=== PATIENT | female | born 1975 | race Caucasian/White ===

== ENCOUNTER 2016-06-27 17:41 | Emergency (ER) | payer MEDICAID, OTHER ==
[~2016-06-27] VITALS: Ht 162.6 cm; Wt 99.8 kg
[~2016-06-27 17:41] MED LIST: FLOMAX0.4 MG PO; NORCO 5/325 MG1 TAB PO
[2016-06-27 17:51] VITALS: BP 131/83
[2016-06-27] MEDS ORDERED: NACL 0.9% 1,000 ML IV SCH (18:02)
[2016-06-27] MEDS ORDERED: ONDANSETRON 4 MG/2 ML VIAL IVP ONE ×2 (18:05→19:30)
[2016-06-27] MEDS ORDERED: KETOROLAC 30 MG/ML VIAL IVP ONE (18:05)
--- NOTE | 2016-06-27 18:07 | NUR ---
LAB AT BED SIDE
--- NOTE | 2016-06-27 18:07 | NUR ---
41/F BIB SELF C/O LOWER BACK PAIN, HEADACHE & N/V/D X TODAY. SKIN IS PINK/WARM/DRY; AAOX4 WITH EVEN AND STEADY GAIT; LUNGS CLEAR BL; PT DENIES CP, SOB, OR COUGH AT THIS TIME; PATIENT STATES PAIN OF 6/10 AT THIS TIME; PATIENT POSITIONED FOR COMFORT; HOB ELEVATED; BEDRAILS UP X2; BED DOWN. ER MD MADE AWARE OF PT STATUS.
--- NOTE | 2016-06-27 18:07 | NUR ---
PT TAKEN TO BED 5
--- NOTE | 2016-06-27 19:17 | NUR ---
Dr. Yeh evaluating patient at bedside.
--- NOTE | 2016-06-27 19:21 | NUR ---
Pt report given to KING Barrera. Transfer of care at this time.
--- NOTE | 2016-06-27 19:22 | NUR ---
REPORT RECEIVED FROM LUCERO MALIK. ASSUMED PT CARE.
[2016-06-27] MEDS ORDERED: IBUPROFEN 800 MG TAB PO ONE (20:55)
[2016-06-27 21:45] VITALS: BP 106/70
== END 2016-06-27 21:45 | disposition home or self-care (01) ==
LOC: MED 17:41
DX: A08.4 Viral intestinal infection, unspecified (principal); Z87.442 Personal history of urinary calculi; Z79.899 Other long term (current) drug therapy; Z98.890 Other specified postprocedural states
CPT/HCPCS: 36415; 74177; 80053; 81001; 81025; 83690; 85025; 96361; 96374; 96375; 96376; 99285; J1885; J2405; J7030; Q9967

== ENCOUNTER 2016-09-30 13:42 | Emergency (ER) | payer MEDICAID ==
[~2016-09-30] VITALS: Ht 165.1 cm; Wt 104.1 kg
[2016-09-30 13:45] VITALS: BP 126/85
--- NOTE | 2016-09-30 16:13 | NUR ---
PATIENT TO BED 8 AT THIS TIME.
--- NOTE | 2016-09-30 16:20 | NUR ---
41/F PRESENT TO ER C/O RIGHT LOWER MOLAR PAIN X 3 DAYS----SAW DENTIST YESTERDAY AND WAS TOLD TO CONTINUE AMOXICILLIN BUT PAIN HAS WORSEN. PAIN 6/10 THROBBING NON-RADIATING. AAOx4, PERRLA, BREATHING EVEN AND UNLABORED. ERMD NOTIFIED OF PATIENT STATUS.
--- NOTE | 2016-09-30 16:43 | NUR ---
Patient being evaluated by physician at bedside.
[2016-09-30] MEDS ORDERED: HYDROcodone/APAP 5/325 MG 1 TAB TAB PO ONE (16:45)
[2016-09-30 17:01] VITALS: BP 117/76
--- NOTE | 2016-09-30 17:01 | NUR ---
Patient discharged with v/s stable. Written and verbal after care instructions given and explained. Patient alert, oriented and verbalized understanding of instructions. Ambulatory with steady gait. All questions addressed prior to discharge. ID band removed. Patient advised to follow up with PMD. Rx of NORCO5/325MG TABLET given. Patient educated on indication of medication including possible reaction and side effects. Opportunity to ask questions provided and answered.
== END 2016-09-30 17:01 | disposition home or self-care (01) ==
LOC: MED 13:42
DX: K02.9 Dental caries, unspecified (principal); Z87.442 Personal history of urinary calculi

== ENCOUNTER 2016-11-12 21:38 | Emergency (ER) | payer MEDICAID ==
[~2016-11-12] VITALS: Ht 162.6 cm; Wt 104.3 kg
[~2016-11-12 21:38] MED LIST changes: -FLOMAX0.4 MG PO; +HYDR-4446 PO; -NORCO 5/325 MG1 TAB PO; +TAMS0.4C96 PO
[2016-11-12 22:12] VITALS: BP 141/95
--- NOTE | 2016-11-12 22:24 | NUR ---
TO ER BED 8
--- NOTE | 2016-11-12 22:25 | NUR ---
PATIENT PRESENTS TO ED WITH C/O LEFT FLANK PAIN 2 HOURS AGO ,RADIATING TO HER LOWER BACK PAIN WITH NAUSEA . DENIES V/D; SKIN IS PINK/WARM/DRY; AAOX4 WITH EVEN AND STEADY GAIT; LUNGS CLEAR BL; HR EVEN AND REGULAR; PT DENIES ANY FEVER, CP, SOB, OR COUGH AT THIS TIME; PATIENT STATES LEFT FLANK PAIN OF 10/10 AT THIS TIME; VSS; PATIENT POSITIONED FOR COMFORT; HOB ELEVATED; BEDRAILS UP X2; BED DOWN. ER MD MADE AWARE OF PT STATUS.
--- NOTE | 2016-11-12 22:53 | NUR ---
REPORT GIVEN TO KING GOOD FOR CONTINUATION OF CARE
[2016-11-12] MEDS ORDERED: NACL 0.9% 1,000 ML IV ONE (22:55)
[2016-11-12] MEDS ORDERED: HYDROmorphone 1 MG/ML AMP IVP ONE (23:00)
[2016-11-13] MEDS ORDERED: HYDROmorphone 1 MG/ML AMP IVP ONE (00:15)
--- NOTE | 2016-11-13 00:50 | NUR ---
RESULTS BACK AND NOTED BY ERMD AND FOR D/C.
[2016-11-13 01:07] VITALS: BP 132/83
== END 2016-11-13 01:07 | disposition home or self-care (01) ==
LOC: MED 21:38
DX: N20.0 Calculus of kidney (principal); R03.0 Elevated blood-pressure reading, without diagnosis of hypertension; Z87.442 Personal history of urinary calculi
CPT/HCPCS: 74176; 81002; 81025; 96361; 96374; 96376; 99285; J1170; J7030

== ENCOUNTER 2017-01-29 14:52 | Emergency (ER) | payer MEDICAID ==
[~2017-01-29] VITALS: Ht 162.6 cm; Wt 103.2 kg
[~2017-01-29 14:52] MED LIST changes: +ACET-8386 PO; -HYDR-4446 PO
[2017-01-29 14:58] VITALS: BP 148/65
--- NOTE | 2017-01-29 15:03 | NUR ---
Patient ambulated to bed 8. RN evaluating patient at bedside.
--- NOTE | 2017-01-29 15:04 | NUR ---
41F DROPPED OFF BY FAMILY C/O ASTHMA EXACERBATION X 2 WEEKS, WORSENING X TODAY. HX: ASTHMA, ENDOMETRIAL CYST. RX: INHALER. SKIN IS PINK/WARM/DRY; AAOX4 WITH EVEN AND STEADY GAIT; LUNGS WHEEZING BL; PT DENIES ANY FEVER, OR COUGH AT THIS TIME; PATIENT STATES PAIN OF 5/10 AT THIS TIME; VSS; PATIENT POSITIONED FOR COMFORT; HOB ELEVATED; BEDRAILS UP X2; BED DOWN. ER MD MADE AWARE OF PT STATUS.
--- NOTE | 2017-01-29 15:08 | NUR ---
Dr. Ferguson evaluating patient at bedside.
--- NOTE | 2017-01-29 15:09 | NUR ---
David lock in [facility] - 01/29/[address] at [address] Ferguson evaluating patient at bedside.
[2017-01-29] MEDS ORDERED: predniSONE 20 MG TAB PO ONE (15:15)
[2017-01-29] MEDS ORDERED: ALBUTEROL SULFATE/IPRATROPIU 3 ML SOL IH ONE (15:15)
--- NOTE | 2017-01-29 15:15 | NUR ---
ADMITTING DX: ADULT-ASTHMA LOC AWAKE AND ALERT RESPONSIVE TO TOOL REPAIR TECHNICIAN VERBAL COMMANDS EDUCATION PROVIDE TO PATIENT WITH ACKNOWLEDGEMENT ON HHN THERAPY, RESPIRATORY DRUG AND PEAK FLOW. HHN THERAPY GIVEN ORDERED ENCOURAGED PATIENT FOR DEEP BREATHING AND COUGH DURING THERAPY STRONG MOIST NPC TOLERATED THERAPY WELL WITHOUT ADVERSE REACTIONS NOTED PEAK FLOW: BEFORE 200ml AFTER [address]ml DR[address] IMANI HADDAD NOTIFIED
--- NOTE | 2017-01-29 15:19 | NUR ---
RT AT BEDSIDE FOR BREATHING TREATMENT.
[2017-01-29] MEDS ORDERED: ALBUTEROL 0.083% 2.5 MG/3 ML NEBU INH ONE (16:05)
--- NOTE | 2017-01-29 16:12 | NUR ---
AWAKE AND ALERT RESPONSIVE FOLLOW-UP HHN THERAPY GIVEN ORDERED ENCOURAGED DEEP BREATHING AND COUGH DURING THERAPY TOLRATED WELL WITHOUT INCIDENT PEAK FLOW: before 320ml after 360ml
--- NOTE | 2017-01-29 16:24 | NUR ---
RT AT BEDSIDE FOR BREATHING TREATMENT.
[2017-01-29 16:46] VITALS: BP 147/84
--- NOTE | 2017-01-29 16:46 | NUR ---
Patient discharged with P112 & BP 147/84; DENIES HEADACHE OR DIZINESS; MD MADE AWARE. Written and verbal after care instructions given and explained. Patient alert, oriented and verbalized understanding of instructions. Ambulatory with steady gait. All questions addressed prior to discharge. ID band removed. Patient advised to follow up with PMD. Rx of QVAR INHALOR& MEDROL DOSEPAK given. Patient educated on indication of medication including possible reaction and side effects. Opportunity to ask questions provided and answered.
== END 2017-01-29 16:46 | disposition home or self-care (01) ==
LOC: MED 14:52
DX: J45.901 Unspecified asthma with (acute) exacerbation (principal); R03.0 Elevated blood-pressure reading, without diagnosis of hypertension
CPT/HCPCS: 94640; 99284; J7512; J7613; J7620

== ENCOUNTER 2017-02-28 18:48 | Emergency (ER) | payer MEDICAID ==
[~2017-02-28] VITALS: Ht 162.6 cm; Wt 105.7 kg
[2017-02-28 19:03] VITALS: BP 132/85
[2017-02-28] MEDS ORDERED: PROCHLORPERAZINE 10 MG/2 ML VIAL IM ONE (20:10)
[2017-02-28] MEDS ORDERED: diphenhydrAMINE 50 MG/ML VIAL IM ONE (20:10)
[2017-02-28 21:08] VITALS: BP 110/72
== END 2017-02-28 21:08 | disposition home or self-care (01) ==
LOC: MED 18:48
DX: R51 Headache (principal); R03.0 Elevated blood-pressure reading, without diagnosis of hypertension; R20.0 Anesthesia of skin; R11.2 Nausea with vomiting, unspecified; J45.909 Unspecified asthma, uncomplicated; Z87.442 Personal history of urinary calculi; Z79.899 Other long term (current) drug therapy
CPT/HCPCS: 70450; 81002; 81025; 96372; 99284; J0780; J1200

== ENCOUNTER 2018-06-17 08:44 | Inpatient (IN) | payer MEDICAID ==
[~2018-06-17] VITALS: Ht 162.6 cm; Wt 112.9 kg
[2018-06-17 08:57] VITALS: BP 158/92
--- NOTE | 2018-06-17 09:42 | NUR ---
ASSUMED PATIENT CARE, NURSING ASSESSMENT COMPLETED. SEEN AND EVALUATED BY REMA CLAY COMPLETED.
[2018-06-17] MEDS ORDERED: KETOROLAC 60 MG/2 ML VIAL IM ONE (09:50)
[2018-06-17] MEDS ORDERED: MORPHINE SULFATE 4 MG/ML SYR IM ONE (09:50)
[2018-06-17] MEDS ORDERED: DICYCLOMINE 20 MG/2 ML VIAL IM ONE (09:50)
--- NOTE | 2018-06-17 10:07 | NUR ---
Patient taken to CT via w/c.
[2018-06-17 10:19] LABS: APPEARANCE,URINE CLEAR (CLEAR); BILIRUBIN,URINE NEGATIVE (NEGATIVE); BLOOD, URINE 3+ (NEGATIVE); COLOR,URINE YELLOW (YELLOW); LEUKOCYTE ESTERASE ,URINE NEGATIVE (NEGATIVE); NITRITE, URINE NEGATIVE (NEGATIVE); PH,URINE 5.5 (5.0-9.0); UGLUCOSE NEGATIVE (NEGATIVE)
[2018-06-17 10:28] LABS: RBC,URINE 50-80 /HPF (0-5)
[2018-06-17 10:29] LABS: WBC,URINE 6-15 (FEW) /HPF (0-5)
[2018-06-17] MEDS ORDERED: NACL 0.9% 2,000 ML IV SCH (11:20)
[2018-06-17] MEDS ORDERED: GENTAMICIN 80 MG in DEXTROSE 5% 100 ML IV ONE (11:20)
[2018-06-17] MEDS ORDERED: NACL 0.9% 1,000 ML IV ONE (11:20)
[2018-06-17] MEDS ORDERED: LEVOFLOXACIN 500 MG/D5W PREMIX 100 ML IV ONE (11:20)
[2018-06-17] MEDS ORDERED: METOCLOPRAMIDE 10 MG/2 ML INJ VIAL IVP ONE (11:50)
[2018-06-17] MEDS ORDERED: PROMETHAZINE 25 MG/ML VIAL IM ONE (11:50)
[2018-06-17] MEDS ORDERED: GENTAMICIN 80 MG/2 ML VIAL ONE (12:06)
[2018-06-17 13:18] LABS: BASOPHILS # (AUTO) 0.1 K/uL (0.00-0.22); BASOPHILS % (AUTO) 0.6 % (0.0-2.0); EOSINOPHILS # (AUTO) 0.3 K/uL (0-0.4); EOSINOPHILS % (AUTO) 2.1 % (0.0-4.0); HEMATOCRIT 43.4 % (36-48); LYMPHOCYTES # (AUTO) 2.8 K/uL (2.5-16.5); LYMPHOCYTES % (AUTO) 20.8 % (20.5-51.1); MEAN CORPUSCULAR HEMOGLOBIN 29 pg (27-31); MEAN CORPUSCULAR HGB CONC 32 g/dL (33-37); MEAN CORPUSCULAR VOLUME 88.7 fL (80-94); MONOCYTES % (AUTO) 7.3 % (1.7-9.3); NEUTROPHILS # (AUTO) 9.2 K/uL (1.8-7.7); NEUTROPHILS % (AUTO) 69.2 % (42.2-75.2); PLATELET COUNT (AUTO) 246 K/uL (140-450); RED BLOOD CELL COUNT(AUTO) 4.89 MIL/uL (4.20-5.40); RED CELL DISTRIBUTION WIDTH 13.8 % (11.6-13.7); WHITE BLOOD COUNT (AUTO) 13.2 K/uL (4.8-10.8)
[2018-06-17 13:37] LABS: ANION GAP 10.5 (8-16); CARBON DIOXIDE 26.8 mmol/L (21-32); CREATININE 0.9 mg/dL (0.6-1.3); POTASSIUM 4.3 mmol/L (3.5-5.1)
[2018-06-17 13:49] LABS: ALBUMIN 3.3 g/dL (3.4-5.0); TOTAL BILIRUBIN 0.3 mg/dL (0.0-1.0)
[2018-06-17] MEDS ORDERED: ACETAMINOPHEN 325 MG TAB PO PRN (14:05)
[2018-06-17] MEDS ORDERED: ONDANSETRON 4 MG/2 ML VIAL IM/IVP PRN (14:05)
[2018-06-17] MEDS ORDERED: HYDROcodone/APAP 7.5/325 MG 1 TAB PO PRN (14:05)
[2018-06-17] MEDS ORDERED: MORPHINE SULFATE 2 MG/ML SYR IVP PRN (14:05)
[2018-06-17] MEDS ORDERED: KETOROLAC 15 MG/ML VIAL IVP PRN (14:15)
[2018-06-17 14:50] VITALS: BP 118/74
--- NOTE | 2018-06-17 14:50 | NUR ---
RECEIVED REPORT FROM EMERGENCY ROOM NURSE. PT IN STABLE CONDITION. RESPIRATIONS EVEN AND UNLABORED. IV INTACT AND PATENT. CALL LIGHT AT BEDSIDE. BED IN LOW POSITION. WILL CONTINUE TO MONITOR.
--- NOTE | 2018-06-17 14:58 | NUR ---
DISPO AND MEDICAL DECISION MAKING, INPATIENT ADMISSION FOR FURTHER MANAGEMENT. PATIENT CARE ENDORSED TO KING PENNY. PATIENT UPDATED ACCORDINGLY.
[2018-06-17] MEDS ORDERED: fentaNYL 1 MG in NACL 0.9% 80 ML IV PRN (15:05)
[2018-06-17] MEDS ORDERED: TAMSULOSIN 0.4 MG CAP PO SCH (15:30)
[2018-06-17 15:33] LABS: BARBITURATE, URINE NEG. ng/ml (NEG <=200); BENZODIAZEPINE, URINE NEG. ng/mL (NEG <=200); CANNABINOID, URINE NEG. ng/mL (NEG <=50); COCAINE, URINE NEG. ng/mL (NEG <=300); OPIATE, URINE NEG. ng/mL (NEG <=2000); PHENCYCLIDINE SCREEN,URINE NEG. ng/mL (NEG <=25)
--- NOTE | 2018-06-17 15:45 | NUR ---
GAVE ORDERED DUE MEDICATIONS. PT TOLERATED WELL. WILL CONTINUE TO MONITOR.
[2018-06-17 15:46] LABS: CHOL/HDL RATIO 5.1 (1-4.5); MAGNESIUM 2.3 mg/dL (1.8-2.4); PHOSPHORUS 2.7 mg/dL (2.5-4.9)
[2018-06-17 15:52] LABS: PROTHROMBIN TIME 9.3 secs (10.8-13.4)
[2018-06-17 16:14] LABS: THYROID STIMULATING HORMONE 2.92 uIU/mL (0.34-3.74)
--- NOTE | 2018-06-17 17:10 | NUR ---
PT LYING IN BED IN STABLE CONDITION. RESPIRATIONS EVEN AND UNLABORED WILL CONTINUE TO MONITOR.
[2018-06-17] MEDS: NACL 0.9% 1,000 ML IV SCH ×2 (17:17→22:53)
--- NOTE | 2018-06-17 19:15 | NUR ---
GAVE REPORT TO EXERCISE PLANNER NURSE FOR CONTINUITY OF CARE. PT IN STABLE CONDITION.
--- NOTE | 2018-06-17 19:20 | NUR ---
RECEIVED ENDORSEMENT FROM AM SHIFT RN. INTRODUCED SELF, UPDATED BOARD. PATIENT A/Ox4, ABLE TO VERBALIZE NEEDS. NO SOB OR DISTRESS NOTED. IV SITE ON RIGHT HAND, 18 GAUGE, WITH IVF INFUSING, INTACT. BED IN THE LOWEST POSITION, CALL LIGHT WITHIN REACH. INITIAL ASSESSMENT DONE. WILL CONTINUE TO MONITOR.
--- NOTE | 2018-06-17 23:50 | NUR ---
ROUNDS DONE, VITALS CHECKED. NO SOB OR DISTRESS NOTED.
[2018-06-18] VITALS: BP 122/75
--- NOTE | 2018-06-18 02:10 | NUR ---
CHECKS MADE. NO DISTRESS NOTED.
--- NOTE | 2018-06-18 05:10 | NUR ---
PATIENT ASLEEP, VISIBLE CHEST RISE AND FALL NOTED.
[2018-06-18] MEDS: NACL 0.9% 1,000 ML IV SCH ×3 (05:53→20:57)
--- NOTE | 2018-06-18 07:10 | NUR ---
ENDORSED PATIENT TO AM SHIFT RN. PATIENT IN STABLE CONDITION.
--- NOTE | 2018-06-18 07:15 | NUR ---
RECEIVED PT FROM NURSING HOME AIDE NURSE, PT IS AWAKE AND LYING ON THE BED WITH SIDE RAILS UP AND CALL LIGHT WITHIN REACH, PT HAS AN IV LINE ON THE RT HAND G. 22 WITH NS AT 120ML/HR, INFUSING. PT VERBALIZED A PAIN RATE OF 8/10. NO OTHER UNTOWARD SYMPTOM NOTED AND WILL MONITOR PT.
[2018-06-18 08:00] VITALS: BP 152/86
[2018-06-18] MEDS ORDERED: MORPHINE SULFATE 2 MG/ML SYR IVP PRN (08:00)
--- NOTE | 2018-06-18 08:00 | NUR ---
DR. BENOIT MADE A VERBAL ORDER TO INCREASE THE RATE OF THE PT'S IVF TO 150ML/HR.
--- NOTE | 2018-06-18 08:24 | NUR ---
PATIENT HAS BEEN SCREENED AND CATEGORIZED HIGH NUTRITION RISK. PATIENT WILL BE SEEN WITHIN 1-2 DAYS OF ADMISSION. 06/18/18-06/19/[address]
[2018-06-18] MEDS: LACTOBACILLUS RHAMNOSUS GG 1 EACH CAP PO SCH (08:37)
[2018-06-18] MEDS: TAMSULOSIN 0.4 MG CAP PO SCH (08:37)
--- NOTE | 2018-06-18 08:37 | NUR ---
PT IS AWAKE AND VITAL SIGNS TAKEN AND IS WITHIN NORMAL LIMIT, PAIN MEDICATION GIVEN VIA IV PUSH AND PT TOLERATED IT, WILL RE-ASSESS PAIN IN AN HOUR.
[2018-06-18] MEDS: CALCIUM POLYCARBOPHIL 625 MG TAB PO SCH (08:38)
[2018-06-18 08:46] LABS: T4 (THYROXINE) 7.7 ug/dL (4.5-12.0)
--- NOTE | 2018-06-18 09:37 | NUR ---
PT IS AWAKE ND SEATED ON THE BED, PT DENIES PAIN AT THIS TIME.
--- NOTE | 2018-06-18 11:30 | NUR ---
ASSISTED PT TO THE RESTROOM AND BACK TO BED.
[2018-06-18 13:41] LABS: BASOPHILS % (AUTO) 0.3 % (0.0-2.0); EOSINOPHILS # (AUTO) 0.3 K/uL (0-0.4); EOSINOPHILS % (AUTO) 2.3 % (0.0-4.0); HEMATOCRIT 38.8 % (36-48); HEMOGLOBIN 12.9 g/dL (12.0-16.0); LYMPHOCYTES # (AUTO) 2.3 K/uL (2.5-16.5); LYMPHOCYTES % (AUTO) 18.5 % (20.5-51.1); MEAN CORPUSCULAR HEMOGLOBIN 29 pg (27-31); MEAN CORPUSCULAR HGB CONC 33 g/dL (33-37); MEAN CORPUSCULAR VOLUME 86.7 fL (80-94); MONOCYTES # (AUTO) 0.9 K/uL (0.8-1.0); MONOCYTES % (AUTO) 7.2 % (1.7-9.3); NEUTROPHILS % (AUTO) 71.7 % (42.2-75.2); PLATELET COUNT (AUTO) 218 K/uL (140-450); RED BLOOD CELL COUNT(AUTO) 4.48 MIL/uL (4.20-5.40); RED CELL DISTRIBUTION WIDTH 13.3 % (11.6-13.7); WHITE BLOOD COUNT (AUTO) 12.5 K/uL (4.8-10.8)
[2018-06-18 13:47] LABS: ANION GAP 12.4 (8-16); CARBON DIOXIDE 24.5 mmol/L (21-32); CREATININE 0.9 mg/dL (0.6-1.3); POTASSIUM 3.9 mmol/L (3.5-5.1)
[2018-06-18 14:14] LABS: MAGNESIUM 1.8 mg/dL (1.8-2.4); PHOSPHORUS 3.1 mg/dL (2.5-4.9)
[2018-06-18 16:00] VITALS: BP 121/77
--- NOTE | 2018-06-18 16:40 | NUR ---
PT IS AWAKE AND SEATED ON THE BED WITH FAMILY ON THE BEDSIDE, VITAL SIGNS TAKEN AND IS WITHIN NORMAL LIMIT. PT DENIES PAIN AT THIS TIME.
--- NOTE | 2018-06-18 19:35 | NUR ---
ENDORSED PT TO GRAPHITE GRINDER NURSE, KELI, FOR CONTINUITY OF CARE, PT TIS STABLE AT THIS TIME LYING ON THE BED.
--- NOTE | 2018-06-18 19:36 | NUR ---
RECEIVED ENDORSEMENT FROM AM SHIFT RN. INTRODUCED SELF, UPDATED BOARD. PATIENT A/Ox4, ABLE TO VERBALIZE NEEDS. NO SOB OR DISTRESS NOTED. IV SITE ON RIGHT HAND. BED IN THE LOWEST POSITION, CALL LIGHT WITHIN REACH. INITIAL ASSESSMENT DONE. WILL CONTINUE TO MONITOR.
[2018-06-19] VITALS: BP 119/71
--- NOTE | 2018-06-19 00:01 | NUR ---
VITALS TAKEN, NO DISTRESS NOTED.
--- NOTE | 2018-06-19 03:02 | NUR ---
PATIENT ASLEEP, VISIBLE CHEST RISE AND FALL NOTED.
[2018-06-19] MEDS: NACL 0.9% 1,000 ML IV SCH (03:25)
--- NOTE | 2018-06-19 05:00 | NUR ---
ROUNDS DONE, NO DISTRESS NOTED.
--- NOTE | 2018-06-19 07:10 | NUR ---
ENDORSED PATIENT TO AM SHIFT RN. PATIENT STABLE.
--- NOTE | 2018-06-19 07:11 | NUR ---
RECEIVED BEDSIDE REPORT FROM CIVIL DIVISION DEPUTY SHERIFF NURSE. PATIENT IS AWAKE, ALERT AND ORIENTEDX4. NO SIGNS OF DISTRESS ON RA. SKIN IS INTACT. PATIENT IN AMBULATORY. GAIT IS STEADY. MED SURGE PATIENT. PATIENT IS CONTINENT. BED IN LOW POSITION. CALL LIGHT WITHIN REACH. WILL CONTINUE TO MONITOR THE PATIENT
[2018-06-19 08:00] VITALS: BP 123/91
[2018-06-19 08:00] LABS: BASOPHILS % (AUTO) 0.5 % (0.0-2.0); EOSINOPHILS # (AUTO) 0.4 K/uL (0-0.4); EOSINOPHILS % (AUTO) 3.9 % (0.0-4.0); HEMATOCRIT 40.5 % (36-48); HEMOGLOBIN 13.3 g/dL (12.0-16.0); LYMPHOCYTES # (AUTO) 2.3 K/uL (2.5-16.5); LYMPHOCYTES % (AUTO) 24.2 % (20.5-51.1); MEAN CORPUSCULAR HEMOGLOBIN 29 pg (27-31); MEAN CORPUSCULAR HGB CONC 33 g/dL (33-37); MEAN CORPUSCULAR VOLUME 89.5 fL (80-94); MONOCYTES # (AUTO) 0.7 K/uL (0.8-1.0); MONOCYTES % (AUTO) 7.2 % (1.7-9.3); NEUTROPHILS % (AUTO) 64.2 % (42.2-75.2); PLATELET COUNT (AUTO) 228 K/uL (140-450); RED BLOOD CELL COUNT(AUTO) 4.53 MIL/uL (4.20-5.40); RED CELL DISTRIBUTION WIDTH 13.7 % (11.6-13.7); WHITE BLOOD COUNT (AUTO) 9.4 K/uL (4.8-10.8)
[2018-06-19] MEDS ORDERED: TAMS0.4C96 PO (08:21)
[2018-06-19] MEDS ORDERED: SULF-58 PO (08:21)
[2018-06-19] MEDS ORDERED: TRAM50TA3 PO (08:21)
[2018-06-19] MEDS ORDERED: [UNRECOGNIZED DRUG - CODE] PO (08:21)
[2018-06-19] MEDS ORDERED: LACT10CA PO (08:21)
[2018-06-19] MEDS: TAMSULOSIN 0.4 MG CAP PO SCH (08:47)
[2018-06-19] MEDS: CALCIUM POLYCARBOPHIL 625 MG TAB PO SCH (08:47)
[2018-06-19] MEDS: LACTOBACILLUS RHAMNOSUS GG 1 EACH CAP PO SCH (08:47)
--- NOTE | 2018-06-19 08:52 | NUR ---
ADMINISTERED MEDS. PATIENT TOLERATED WELL. WILL CONTINUE TO MONITOR THE PATIENT
[2018-06-19 09:07] LABS: ANION GAP 10.9 (8-16); CARBON DIOXIDE 26.3 mmol/L (21-32); CREATININE 0.7 mg/dL (0.6-1.3); POTASSIUM 4.2 mmol/L (3.5-5.1)
[2018-06-19 09:16] LABS: MAGNESIUM 1.9 mg/dL (1.8-2.4); PHOSPHORUS 3.9 mg/dL (2.5-4.9)
--- NOTE | 2018-06-19 10:55 | NUR ---
EDUCATED PATIENT ON DISEASE PROCESS, ABN S/SX WHEN TO GO TO THE ER, EDUCATED ON MEDS, GAVE MED PRESCRIPTIONS, TOLD HER THE ANTIBIOTIC WAS SENT ELECTRONICALLY, EDUCATED ON F/U W PCP. INFLUENZA UP TO DATE, PNA VACCINE NOT A CANDIDATE. PATIENT VERBALIZED UNDERSTANDING. ID BANDS REMOVED. IV REMOVED TIP INTACT. PATIENT LEFT IN STABLE CONDITION.
== END 2018-06-19 10:55 | disposition home or self-care (01) | DRG 720 ==
LOC: MED 08:44 → MTU 14:09
PROVIDERS: ADMIT General Practice; ATTEND General Practice
DX: A41.9 Sepsis, unspecified organism (principal); E66.01 Morbid (severe) obesity due to excess calories; E44.1 Mild protein-calorie malnutrition; Z68.41 Body mass index [BMI] 40.0-44.9, adult; R16.0 Hepatomegaly, not elsewhere classified; J45.909 Unspecified asthma, uncomplicated; R73.9 Hyperglycemia, unspecified; M06.9 Rheumatoid arthritis, unspecified; I10 Essential (primary) hypertension; K43.9 Ventral hernia without obstruction or gangrene; K57.30 Diverticulosis of large intestine without perforation or abscess without bleeding; E86.0 Dehydration; N80.9 Endometriosis, unspecified; Z71.3 Dietary counseling and surveillance; Z83.3 Family history of diabetes mellitus; Z82.49 Family history of ischemic heart disease and other diseases of the circulatory system; N39.0 Urinary tract infection, site not specified; N13.2 Hydronephrosis with renal and ureteral calculous obstruction
CPT/HCPCS: 36415; 71045; 80048; 80053; 80305; 81001; 81025; 82150; 83036; 83605; 83690; 83735; 83880; 84100; 84436; 84443; 84479; 84703; 85025; 85610; 85730; 87040; 87081; 87086; 93005; 96361; 96365; 96372; 96375; 99285; J0500; J0696; J1580; J1885; J1956; J2270; J2550; J2765; J7030; J7060; Q0092

== ENCOUNTER 2018-12-01 17:04 | Emergency (ER) | payer MEDICAID ==
[~2018-12-01] VITALS: Ht 162.6 cm; Wt 111.8 kg
[~2018-12-01 17:04] MED LIST changes: -ACET-8386 PO; +LACT10CA PO; +SULF-58 PO; +TRAM50TA3 PO; +[UNRECOGNIZED DRUG - CODE] PO
[2018-12-01 17:10] VITALS: BP 136/86
--- NOTE | 2018-12-01 17:28 | NUR ---
dr ram at bedside
[2018-12-01] MEDS ORDERED: INSULIN REGULAR, HUMAN 100 UNIT/ML VIAL IVP ONE (17:30)
[2018-12-01] MEDS ORDERED: NACL 0.9% 1,000 ML IV ONE (17:30)
--- NOTE | 2018-12-01 17:30 | NUR ---
PT PRESENTED TO ED C/O INTERMITENT HEADACHE, DRY MOUTH, SWEATING, AND HYPERGLYCEMIA X1 DAY. PAIN 6/10. CURRENT BS 220. AAOX4, GCS 15, RR EVEN UNLABORED, C/O NAUSEA , NO V/D BLURRY VISION, ED MD DR. JUÁREZ MADE AWARE, WILL CONTINUE TO MONITOR CLOSELY, BED IN LOWEST POSITION, ONE SIDERAIL UP.
--- NOTE | 2018-12-01 17:39 | NUR ---
LAB AT BEDSIDE
[2018-12-01 18:09] LABS: BASOPHILS # (AUTO) 0.1 K/uL (0.00-0.22); EOSINOPHILS # (AUTO) 0.1 K/uL (0-0.4); EOSINOPHILS % (AUTO) 1.4 % (0.0-4.0); HEMATOCRIT 41.1 % (36-48); HEMOGLOBIN 13.8 g/dL (12.0-16.0); LYMPHOCYTES # (AUTO) 2.2 K/uL (2.5-16.5); LYMPHOCYTES % (AUTO) 24.4 % (20.5-51.1); MEAN CORPUSCULAR HEMOGLOBIN 30 pg (27-31); MEAN CORPUSCULAR HGB CONC 34 g/dL (33-37); MEAN CORPUSCULAR VOLUME 87.7 fL (80-94); MONOCYTES # (AUTO) 0.7 K/uL (0.8-1.0); MONOCYTES % (AUTO) 8.5 % (1.7-9.3); NEUTROPHILS # (AUTO) 5.7 K/uL (1.8-7.7); NEUTROPHILS % (AUTO) 64.7 % (42.2-75.2); PLATELET COUNT (AUTO) 245 K/uL (140-450); RED BLOOD CELL COUNT(AUTO) 4.69 MIL/uL (4.20-5.40); RED CELL DISTRIBUTION WIDTH 13.8 % (11.6-13.7); WHITE BLOOD COUNT (AUTO) 8.8 K/uL (4.8-10.8)
--- NOTE | 2018-12-01 18:16 | NUR ---
PT STILL C/O HEADACHE 8/10 THAT DOES NOT RADIATE, NO C/O BLURRY VISION, VS STABLE, INFORMED DR JUÁREZ, WILL CONTINUE TO MONITOR CLOSELY.
[2018-12-01] MEDS ORDERED: ACETAMINOPHEN EXTRA STRENGTH 500 MG TAB PO ONE (18:20)
[2018-12-01 18:29] LABS: ALBUMIN 3.1 g/dL (3.4-5.0); ANION GAP 11.8 (8-16); CARBON DIOXIDE 23.7 mmol/L (21-32); CREATININE 0.8 mg/dL (0.6-1.3); POTASSIUM 3.5 mmol/L (3.5-5.1); TOTAL BILIRUBIN 0.2 mg/dL (0.0-1.0)
--- NOTE | 2018-12-01 18:47 | NUR ---
accu check 130
[2018-12-01 18:51] LABS: APPEARANCE,URINE CLEAR (CLEAR); BILIRUBIN,URINE NEGATIVE (NEGATIVE); BLOOD, URINE TRACE-L (NEGATIVE); COLOR,URINE YELLOW (YELLOW); LEUKOCYTE ESTERASE ,URINE NEGATIVE (NEGATIVE); NITRITE, URINE NEGATIVE (NEGATIVE); UGLUCOSE 2+ (NEGATIVE)
[2018-12-01 19:04] VITALS: BP 129/82
--- NOTE | 2018-12-01 19:04 | NUR ---
Patient discharged with v/s stable. Written and verbal after care instructions given and explained by dr ram. Patient alert, oriented and Ambulatory with steady gait. ID band removed. Rx of metformin hydrochloride and glipizide given.
== END 2018-12-01 19:04 | disposition home or self-care (01) ==
LOC: MED 17:04
DX: E11.65 Type 2 diabetes mellitus with hyperglycemia (principal); E78.5 Hyperlipidemia, unspecified; Z87.442 Personal history of urinary calculi; Z86.79 Personal history of other diseases of the circulatory system; Z79.899 Other long term (current) drug therapy; Z79.2 Long term (current) use of antibiotics; Z79.1 Long term (current) use of non-steroidal anti-inflammatories (NSAID)
CPT/HCPCS: 36415; 80053; 81003; 81025; 82948; 83036; 85025; 96361; 96374; 99283; J1815; J7030

== ENCOUNTER 2019-03-25 09:25 | Observation (INO) | payer MEDICAID ==
[~2019-03-25] VITALS: Ht 162.6 cm; Wt 113.4 kg
--- NOTE | 2019-03-25 09:30 | NUR ---
Patient ambulated to bed 7. RN evaluating patient at bedside.
[2019-03-25 09:35] VITALS: BP 141/78
--- NOTE | 2019-03-25 09:38 | NUR ---
43/F TO ED WITH C/O SOB LASTING APPROX 4 DAYS. DENIES RECENT EXERTION OF ACITIVTY OR STRESS. LUNG SOUNDS CLEAR BILATERALLY, RESPIRATIONS EVEN AND UNLABORED. NO DISTRESS NOTED. SPO2 - 99% ROOM AIR. IN BED FOR MD MARIA.
--- NOTE | 2019-03-25 10:13 | NUR ---
WIRING MECHANIC AT BEDSIDE FOR DRAW.
--- NOTE | 2019-03-25 10:34 | NUR ---
XRAY AT BEDSIDE FOR CXR.
[2019-03-25] MEDS ORDERED: ASPIRIN 81 MG TAB.CHEW PO ONE (10:55)
[2019-03-25] MEDS ORDERED: NITROGLYCERIN 2% 1 GM PKT TP ONE (10:55)
[2019-03-25 11:00] LABS: BASOPHILS % (AUTO) 0.5 % (0.0-2.0); EOSINOPHILS # (AUTO) 0.1 K/uL (0-0.4); EOSINOPHILS % (AUTO) 0.7 % (0.0-4.0); HEMOGLOBIN 14.7 g/dL (12.0-16.0); LYMPHOCYTES # (AUTO) 2.4 K/uL (2.5-16.5); LYMPHOCYTES % (AUTO) 26.6 % (20.5-51.1); MEAN CORPUSCULAR HEMOGLOBIN 30 pg (27-31); MEAN CORPUSCULAR HGB CONC 33 g/dL (33-37); MEAN CORPUSCULAR VOLUME 88.4 fL (80-94); MONOCYTES # (AUTO) 0.6 K/uL (0.8-1.0); MONOCYTES % (AUTO) 6.7 % (1.7-9.3); NEUTROPHILS # (AUTO) 5.9 K/uL (1.8-7.7); NEUTROPHILS % (AUTO) 65.5 % (42.2-75.2); PLATELET COUNT (AUTO) 232 K/uL (140-450); RED BLOOD CELL COUNT(AUTO) 4.98 MIL/uL (4.20-5.40); RED CELL DISTRIBUTION WIDTH 13.8 % (11.6-13.7)
--- NOTE | 2019-03-25 11:05 | NUR ---
Dr. Prado is evaluating the patient at bedside.
[2019-03-25 11:12] LABS: ALBUMIN 3.4 g/dL (3.4-5.0); ANION GAP 14.2 (8-16); CARBON DIOXIDE 23.7 mmol/L (21-32); CREATININE 0.9 mg/dL (0.6-1.3); POTASSIUM 3.9 mmol/L (3.5-5.1); TOTAL BILIRUBIN 0.4 mg/dL (0.0-1.0)
--- NOTE | 2019-03-25 11:20 | NUR ---
MEDICATED ORDERED. WILL CONTINUE TO ASSESS.
--- NOTE | 2019-03-25 11:52 | NUR ---
PT REPORTS RELIEF OF SYMPTOMS POST FORGE PRESS OPERATOR.
--- NOTE | 2019-03-25 11:59 | NUR ---
SPOKE WITH MARISOL FROM [facility] [employer]. GAVE CLINICAL INFO ABOUT PATIENT.
[2019-03-25] MEDS ORDERED: ESCI10TA PO (12:12)
[2019-03-25] MEDS ORDERED: ATOR10TA PO ×2 (12:12→14:00)
[2019-03-25] MEDS ORDERED: METF1000 PO ×2 (12:12→14:00)
[2019-03-25] MEDS ORDERED: GLIP5TAB13 PO (12:12)
[2019-03-25] MEDS ORDERED: CYCL10TA33 PO (12:13)
[2019-03-25] MEDS: NACL 0.9% 1,000 ML IV SCH (12:13)
[2019-03-25] MEDS ORDERED: ACETAMINOPHEN 325 MG TAB PO PRN (12:15)
[2019-03-25] MEDS ORDERED: MORPHINE SULFATE 2 MG/ML SYR IVP PRN (12:15)
[2019-03-25] MEDS ORDERED: ONDANSETRON 4 MG/2 ML VIAL IM/IVP PRN (12:15)
[2019-03-25] MEDS ORDERED: HYDROcodone/APAP 5/325 MG 1 TAB TAB PO PRN (12:15)
[2019-03-25] MEDS ORDERED: DOCUSATE SODIUM 100 MG GELCAP PO PRN (12:15)
--- NOTE | 2019-03-25 12:23 | NUR ---
Dr. Canseco is evaluating the patient at bedside.
[2019-03-25 12:30] VITALS: BP 107/64
--- NOTE | 2019-03-25 12:30 | NUR ---
Patient will be admitted to care of DR HUTCHINS. Admited to TELEMTERY. Will go to room 106-B. Belongings list completed. Report to KING SHAH.
--- NOTE | 2019-03-25 12:30 | NUR ---
RECEIVED PT FROM ER NURSE, VIA [place], PT IS AWAKE AND AMBULATED TO THE BED, IV LINE ON THE RT HAND G. 22 ON SALINE LOCK, V/S TAKEN AND BP IS 107/64, PULSE IS 84, RESPIRATION IS 18/MIN AND O2 SATURATION IS 96%, NO SIGN OF DISTRESS NOTED AND WILL MONITOR PT.
[2019-03-25] MEDS ORDERED: NITROGLYCERIN 0.4 MG TAB SL PRN (12:40)
[2019-03-25] MEDS ORDERED: INSULIN LISPRO SLIDING SCALE 100 UNITS/ML VIAL SUBQ PRN (12:45)
[2019-03-25] MEDS ORDERED: DEXTROSE 50% 50 ML SYR IVP PRN (12:45)
--- NOTE | 2019-03-25 15:34 | NUR ---
DISCHARGE PLANNIN43 YEAR OLD FEMALE PATIENT FROM HOME, WHO CAME IN DUE TO CHEST PAIN, SOB X 4 DAYS. PAST MEDICAL HISTORY INCLUDE ENDOMETRIOSIS, DM, ANXIETY/DEPRESSION AND HIATAL HERNIA. WITH INITIAL DIAGNOSIS OF CHEST PAIN. LABS INCLUDE WBC 9.0, H/H 14.7/44.0, NA/K 138/3.9, BUN/CREA 17/0.9, TROP 0.017 AND LIPASE 339. CXR NORMAL. NO CONSULTS AT THIS TIME. DC PLAN PENDING ON PATIENT'S RESPONSE TO TREATMENT.
[2019-03-25 16:05] LABS: PROTHROMBIN TIME 9.4 secs (10.8-13.4)
--- NOTE | 2019-03-25 16:23 | NUR ---
PER DR. RAMOS, PLACED PATIENT ON 2L NC OXYGEN TO KEEP O2 90% ABOVE. PATIENT TOLERATING WELL. WILL CONTINUE TO MONITOR.
[2019-03-25] MEDS: BLOOD GLUCOSE MONITORING 1 DEV DEV FS SCH ×2 (17:08→20:05)
[2019-03-25] MEDS: metFORMIN 500 MG TAB PO SCH (17:14)
--- NOTE | 2019-03-25 17:15 | NUR ---
PT WAS GIVEN 2 UNITS INSULIN FOR THE BLOOD GLUCOSE OF 179, METFORMIN WAS GIVEN WELL. WILL MONITOR PT.
--- NOTE | 2019-03-25 18:11 | NUR ---
PATIENT IS RESTING AT THIS TIME. NO COMPLAINTS OF SOB. WILL CONTINUE TO MONITOR. CALL LIGHT WITHIN REACH. BED IN LOW POSITION.
--- NOTE | 2019-03-25 19:15 | NUR ---
ENDORSED PATIENT TO LIFTER DRIVER RN FOR CONTINUITY OF CARE. PATIENT IS IN STABLE CONDITION. FAMILY AT BEDSIDE.
--- NOTE | 2019-03-25 19:16 | NUR ---
RECEIVED REPORT FROM AM SHIFT NURSE. PATIENT ALERT AND ORIENTED X4. NO APPARENT DISTRESS NOTED. WITH C/O PAIN 7/10. HEADACHE. WILL MEDICATE PER PAIN SCALE. WITH 22G ON RIGHT HAND RUNNING IVF. SAFETY MEASURES IN PLACE. BED ON LOW POSITION. CALL LIGHT WITHIN REACH. ABLE TO AMBULATE TO THE BATHROOM INDEPENDENTLY. WILL CONTINUE TO MONITOR.
[2019-03-25 20:00] VITALS: BP 119/76
[2019-03-25 20:23] LABS: APPEARANCE,URINE SL CLOUDY (CLEAR); BILIRUBIN,URINE NEGATIVE (NEGATIVE); BLOOD, URINE 3+ (NEGATIVE); COLOR,URINE DARK YELLOW (YELLOW); LEUKOCYTE ESTERASE ,URINE NEGATIVE (NEGATIVE); NITRITE, URINE NEGATIVE (NEGATIVE); PH,URINE 5.5 (5.0-9.0); UGLUCOSE NEGATIVE (NEGATIVE)
[2019-03-25 20:32] LABS: BARBITURATE, URINE NEG. ng/ml (NEG <=200); BENZODIAZEPINE, URINE NEG. ng/mL (NEG <=200); CANNABINOID, URINE POS. ng/mL (NEG <=50); COCAINE, URINE NEG. ng/mL (NEG <=300); OPIATE, URINE NEG. ng/mL (NEG <=2000); PHENCYCLIDINE SCREEN,URINE NEG. ng/mL (NEG <=25)
[2019-03-25 20:42] LABS: URINE AMORPHOUS URATE 1+ /HPF (None Seen); WBC,URINE 0-5 /HPF (0-5)
[2019-03-25] MEDS ORDERED: ATORVASTATIN 20 MG TAB PO SCH (21:00)
--- NOTE | 2019-03-25 21:15 | NUR ---
PATIENT AWAKE IN BED. RESTING. NO APPARENT DISTRESS NOTED. WILL CONTINUE TO MONITOR.
[2019-03-25] MEDS: METOPROLOL 50 MG TAB PO SCH (21:22)
[2019-03-25] MEDS ORDERED: MELATONIN 3 MG TAB PO PRN (21:35)
[2019-03-25 21:58] LABS: MAGNESIUM 1.9 mg/dL (1.8-2.4); PHOSPHORUS 3.3 mg/dL (2.5-4.9); THYROID STIMULATING HORMONE 2.98 uIU/mL (0.34-3.74)
--- NOTE | 2019-03-25 23:10 | NUR ---
PATIENT ASLEEP IN BED. NO APPARENT DISTRESS NOTED. WILL CONTINUE TO MONITOR.
[2019-03-26] VITALS: BP 124/77
--- NOTE | 2019-03-26 01:05 | NUR ---
PATIENT ASLEEP IN BED. NO APPARENT DISTRESS NOTED. VISIBLE CHEST RISE AND FALL NOTED. WILL CONTINUE TO MONITOR.
--- NOTE | 2019-03-26 02:36 | NUR ---
PATIENT ASLEEP IN BED. VISIBLE CHEST RISE AND FALL NOTED. WILL CONTINUE TO MONITOR.
[2019-03-26 04:00] VITALS: BP 119/68
--- NOTE | 2019-03-26 04:30 | NUR ---
PATIENT ASLEEP IN BED. NO APPARENT DISTRESS NOTED. WILL CONTINUE TO MONITOR.
[2019-03-26] MEDS: NACL 0.9% 1,000 ML IV SCH (05:05)
[2019-03-26] MEDS: BLOOD GLUCOSE MONITORING 1 DEV DEV FS SCH ×3 (05:08→16:43)
--- NOTE | 2019-03-26 06:11 | NUR ---
PATIENT AWAKE IN BED. RESTING. NO APPARENT DISTRESS NOTED. WILL CONTINUE TO MONITOR.
--- NOTE | 2019-03-26 07:15 | NUR ---
ENDORSED PATIENT TO AM SHIFT NURSE FOR CONTINUITY OF CARE.
--- NOTE | 2019-03-26 07:16 | NUR ---
RECEIVED PT FROM THE PROCESSING TECHNOLOGIST NURSE. PT IS AWAKE AND ORIENTED. NO DISTRESS NOTED. PT IS PLEASANT. ON ROOM AIR. V/S WITHIN NORMAL RANGE. DENIES PAIN. DENIES SOB. BREATHING NORMAL. LUNGS CLEAR. AWAITING CARDIAC CONSULT. PT IV ON R HAND 22G, NS AT 60ML. LAST BM 03/26. PT IS AMBULATING INDEPENDENTLY, STEADY GAIT. ON TELE- SR W/ ST DEPRESSION. TROPONIN SO FAR IS NORMAL. WILL DO 3RD ONE TODAY. PER DR RAMOS, ONCE CLEARED BY CARDIO, CAN GO HOME.
[2019-03-26 08:00] VITALS: BP 115/61
[2019-03-26] MEDS: metFORMIN 500 MG TAB PO SCH ×2 (08:20→16:56)
[2019-03-26] MEDS: METOPROLOL 50 MG TAB PO SCH (08:21)
--- NOTE | 2019-03-26 08:25 | NUR ---
ADMINISTERED MORNING MEDS. PT TOLERATED WELL. WILL CONTINUE TO MONITOR PT.
[2019-03-26] MEDS ORDERED: glipiZIDE 5 MG TAB PO SCH (08:30)
[2019-03-26] MEDS ORDERED: ESCITALOPRAM 20 MG TAB PO SCH (09:00)
[2019-03-26] MEDS ORDERED: ASPIRIN 81 MG TAB.CHEW PO SCH (09:00)
[2019-03-26] MEDS ORDERED: PANTOPRAZOLE 40 MG INJ VIAL IVP SCH (09:00)
--- NOTE | 2019-03-26 09:00 | NUR ---
PATIENT HAS BEEN SCREENED AND CATEGORIZED MODERATE NUTRITION RISK. PATIENT WILL BE SEEN WITHIN 3-5 DAYS OF ADMISSION. 03/28/19 03/30/[address]
[2019-03-26 09:27] LABS: CHOL/HDL RATIO 5.9 (1-4.5)
[2019-03-26] MEDS ORDERED: OMEP20TC12 PO (09:57)
[2019-03-26 12:00] VITALS: BP 117/64
--- NOTE | 2019-03-26 13:10 | NUR ---
CHECKED ON PT. FAMILY AT BEDSIDE. PER PT HAD AN EPISODE OF ANXIETY. WONDERING WHEN SHE CAN GO HOME. INFORMED HER THAT D/C ORDERS HAVE BEEN STARTED AND IS BEING PROCESSED BUT AWAITING CARDIOLOGY CLEARANCE. PT VERBALIZED UNDERSTANDING. WILL CONTINUE TO MONITOR PT.
--- NOTE | 2019-03-26 14:53 | NUR ---
SPOKE TO DR RAMOS REGARDING CARDIOLOGY CONSULT. STILL NOT HERE AND PT IS GETTING ANXIOUS ABOUT BEING DISCHARGED HOME. DR RAMOS WILL CALL DR VO AND SEE WHEN HE WILL BE COMING. WILL CONTINUE TO AWAIT FOR DR VO.
[2019-03-26 16:00] VITALS: BP 127/73
--- NOTE | 2019-03-26 16:26 | NUR ---
PT STILL WAITING FOR MARKETING TECHNOLOGIST. PT HAD ANOTHER EPISODE OF ANXIETY. PER PT, IT WAS BETTER THAN THE EARLIER EPISODE. WILL CONTINUE TO MONITOR PT.
--- NOTE | 2019-03-26 19:11 | NUR ---
ENDORSED PT TO THE INSURANCE SOLICITOR NURSE. PT IS IN STABLE CONDITION. ALL D/C PAPERS DONE. LETTER FOR WORK DONE. IV NEEDS TO BE REMOVED AND D/C PAPERS NEED TO BE SIGNED.
--- NOTE | 2019-03-26 19:35 | NUR ---
RECIEVED REPORT FROM AM IVETTE AAO X4. IV D/PRISCILLA WITH NO DISCOMFORT TIP INTACT. TOLERATED WELL. ALL BELONGINGS WITH PT.. D/C INSTRUCTION TO PT.. NO C/O OF DISCOMFORT. INSTRUCTED TO F/U WITH PCC.
== END 2019-03-26 19:35 | disposition home or self-care (01) ==
LOC: MED 09:25 → MTU 12:39
PROVIDERS: ADMIT General Practice; ATTEND General Practice
DX: R07.9 Chest pain, unspecified (principal); F41.9 Anxiety disorder, unspecified; F32.9 Major depressive disorder, single episode, unspecified; E66.01 Morbid (severe) obesity due to excess calories; E11.9 Type 2 diabetes mellitus without complications; Z88.2 Allergy status to sulfonamides; K21.9 Gastro-esophageal reflux disease without esophagitis; N93.9 Abnormal uterine and vaginal bleeding, unspecified; K44.9 Diaphragmatic hernia without obstruction or gangrene; Z68.41 Body mass index [BMI] 40.0-44.9, adult; Z79.82 Long term (current) use of aspirin; Z79.84 Long term (current) use of oral hypoglycemic drugs; Z79.899 Other long term (current) drug therapy
CPT/HCPCS: 36415; 71045; 80053; 80061; 80305; 81001; 82948; 83036; 83690; 83735; 83880; 84100; 84443; 84484; 85025; 85610; 85730; 87081; 93005; 94760; 96372; 96374; 96375; 99285; C9113; G0378; J1815; J2270; Q0092

== ENCOUNTER 2021-02-08 11:45 | Emergency (ER) | payer MEDICAID ==
[~2021-02-08] VITALS: Ht 162.6 cm; Wt 101.6 kg
[~2021-02-08 11:45] MED LIST changes: +ATOR10TA PO; +ESCI10TA PO; +GLIP5TAB13 PO; -LACT10CA PO; +METF1000 PO; +OMEP-278 PO; -SULF-58 PO; -TAMS0.4C96 PO; -TRAM50TA3 PO; -[UNRECOGNIZED DRUG - CODE] PO
[2021-02-08 12:01] VITALS: BP 143/90
--- NOTE | 2021-02-08 12:56 | NUR ---
PT AMBULATED ER BED 9
[2021-02-08] MEDS ORDERED: NACL 0.9% 2,000 ML IV ONE ×2 (13:15→13:20)
--- NOTE | 2021-02-08 13:15 | NUR ---
Dr. blanco is evaluating patient at bedside
--- NOTE | 2021-02-08 13:15 | NUR ---
45 y/o F BIB self from home c/o generalized abdominal pain and elevated blood sugar of 428. Patient A&Ox4, ambulatory, reports headache "pressure all over my head," blurry vision, and dry mouth. Patient also states diarrhea after meals, last BM: this morning. Patient states seen at urgent care and advised for ER evaluation for stat labs. Patient denies fever, chills, dysuria, chest pain, fever, chills, nausea, vomiting. Pt placed into a gown. Pt states compliant with DM medications; hospitalization for sepsis in the past. Bed locked in lowest position, side rails x 1, call light in reach. PMH: DM Meds: trulicity 1x/weekm, metformin, glipzide Sx: C-sections
--- NOTE | 2021-02-08 13:24 | NUR ---
Ambulated to restroom with steady/even gait. UA collected.
[2021-02-08 13:42] LABS: BASOPHILS # (AUTO) 0.1 K/uL (0.00-0.22); BASOPHILS % (AUTO) 0.7 % (0.0-2.0); EOSINOPHILS # (AUTO) 0.1 K/uL (0-0.4); EOSINOPHILS % (AUTO) 1.3 % (0.0-4.0); HEMATOCRIT 42.4 % (36-48); HEMOGLOBIN 14.2 g/dL (12.0-16.0); LYMPHOCYTES # (AUTO) 2.6 K/uL (2.5-16.5); LYMPHOCYTES % (AUTO) 22.8 % (20.5-51.1); MEAN CORPUSCULAR HEMOGLOBIN 28 pg (27-31); MEAN CORPUSCULAR HGB CONC 33 g/dL (33-37); MEAN CORPUSCULAR VOLUME 84.8 fL (80-94); MONOCYTES # (AUTO) 0.8 K/uL (0.8-1.0); MONOCYTES % (AUTO) 6.8 % (1.7-9.3); NEUTROPHILS # (AUTO) 7.8 K/uL (1.8-7.7); NEUTROPHILS % (AUTO) 68.4 % (42.2-75.2); PLATELET COUNT (AUTO) 302 K/uL (140-450); RED CELL DISTRIBUTION WIDTH 14.2 % (11.6-13.7); WHITE BLOOD COUNT (AUTO) 11.4 K/uL (4.8-10.8)
[2021-02-08 13:55] LABS: APPEARANCE,URINE CLEAR (CLEAR); BILIRUBIN,URINE 1+ (NEGATIVE); BLOOD, URINE TRACE-I (NEGATIVE); COLOR,URINE YELLOW (YELLOW); LEUKOCYTE ESTERASE ,URINE NEGATIVE (NEGATIVE); NITRITE, URINE NEGATIVE (NEGATIVE); UGLUCOSE NEGATIVE (NEGATIVE)
[2021-02-08 13:57] LABS: ALBUMIN 3.4 g/dL (3.4-5.0); ANION GAP 15.1 (8-16); CARBON DIOXIDE 22.7 mmol/L (21-32); CREATININE 0.9 mg/dL (0.6-1.3); POTASSIUM 3.8 mmol/L (3.5-5.1); TOTAL BILIRUBIN 0.4 mg/dL (0.0-1.0)
[2021-02-08] MEDS ORDERED: KETOROLAC 15 MG/ML VIAL IVP ONE (14:25)
[2021-02-08 15:42] LABS: RBC,URINE 0-5 /HPF (0-5); TRICHOMONAS,URINE None Seen /HPF (None Seen); WBC,URINE NONE SEEN /HPF (0-5); YEAST,URINE None Seen /HPF (None Seen)
[2021-02-08] MEDS ORDERED: ONDANSETRON 4 MG/2 ML VIAL IVP ONE (16:15)
[2021-02-08] MEDS ORDERED: ONDA-24 PO (16:19)
[2021-02-08] MEDS ORDERED: ACET-10509 PO (16:19)
[2021-02-08 16:50] VITALS: BP 123/62
--- NOTE | 2021-02-08 16:56 | NUR ---
Patient discharged with v/s stable. Written and verbal after care instructions given and explained. Patient alert, oriented and verbalized understanding of instructions. Ambulatory with steady gait. All questions addressed prior to discharge. ID band removed. Patient advised to follow up with PMD. Rx of Tylenol, Zofran given. Patient educated on indication of medication including possible reaction and side effects. Opportunity to ask questions provided and answered.
== END 2021-02-08 16:56 | disposition home or self-care (01) ==
LOC: MED 11:45
DX: E11.65 Type 2 diabetes mellitus with hyperglycemia (principal); J45.909 Unspecified asthma, uncomplicated; I10 Essential (primary) hypertension; F12.90 Cannabis use, unspecified, uncomplicated; Z79.84 Long term (current) use of oral hypoglycemic drugs; Z79.899 Other long term (current) drug therapy; Z98.890 Other specified postprocedural states; Z87.442 Personal history of urinary calculi
CPT/HCPCS: 36415; 80053; 81001; 83690; 85025; 96361; 96374; 96375; 99284; J1885; J2405; J7030

== ENCOUNTER 2021-02-15 16:06 | Emergency (ER) | payer MEDICAID ==
[~2021-02-15] VITALS: Ht 162.6 cm; Wt 101.6 kg
[~2021-02-15 16:06] MED LIST changes: +ACET-10509 PO; +ONDA-24 PO
[2021-02-15 16:17] VITALS: BP 131/88
--- NOTE | 2021-02-15 16:40 | NUR ---
PT TAKEN TO ER BED 8.
[2021-02-15] MEDS ORDERED: KETOROLAC 30 MG/ML VIAL IVP ONE (17:10)
[2021-02-15 17:23] LABS: APPEARANCE,URINE CLEAR (CLEAR); BILIRUBIN,URINE NEGATIVE (NEGATIVE); BLOOD, URINE TRACE-I (NEGATIVE); COLOR,URINE YELLOW (YELLOW); LEUKOCYTE ESTERASE ,URINE NEGATIVE (NEGATIVE); NITRITE, URINE NEGATIVE (NEGATIVE); UGLUCOSE NEGATIVE (NEGATIVE)
[2021-02-15 17:25] LABS: BASOPHILS # (AUTO) 0.1 K/uL (0.00-0.22); BASOPHILS % (AUTO) 0.7 % (0.0-2.0); EOSINOPHILS # (AUTO) 0.1 K/uL (0-0.4); EOSINOPHILS % (AUTO) 0.5 % (0.0-4.0); HEMATOCRIT 40.2 % (36-48); HEMOGLOBIN 13.3 g/dL (12.0-16.0); LYMPHOCYTES # (AUTO) 1.9 K/uL (2.5-16.5); LYMPHOCYTES % (AUTO) 12.7 % (20.5-51.1); MEAN CORPUSCULAR HEMOGLOBIN 29 pg (27-31); MEAN CORPUSCULAR HGB CONC 33 g/dL (33-37); MEAN CORPUSCULAR VOLUME 86.1 fL (80-94); MONOCYTES # (AUTO) 0.8 K/uL (0.8-1.0); MONOCYTES % (AUTO) 5.6 % (1.7-9.3); NEUTROPHILS # (AUTO) 11.7 K/uL (1.8-7.7); NEUTROPHILS % (AUTO) 80.5 % (42.2-75.2); PLATELET COUNT (AUTO) 309 K/uL (140-450); RED BLOOD CELL COUNT(AUTO) 4.67 MIL/uL (4.20-5.40); RED CELL DISTRIBUTION WIDTH 14.4 % (11.6-13.7); WHITE BLOOD COUNT (AUTO) 14.5 K/uL (4.8-10.8)
[2021-02-15] MEDS ORDERED: KETOROLAC 60 MG/2 ML VIAL IM ONE ×2 (17:31→17:40)
[2021-02-15 17:53] LABS: ALBUMIN 3.4 g/dL (3.4-5.0); ANION GAP 19.6 (8-16); CARBON DIOXIDE 23.2 mmol/L (21-32); POTASSIUM 3.8 mmol/L (3.5-5.1); TOTAL BILIRUBIN 0.4 mg/dL (0.0-1.0)
--- NOTE | 2021-02-15 17:53 | NUR ---
45 Y/O F BIB SELF FROM HOME, C/O FLANK PAIN THAT RADIATES TO LLQ ABD PAIN, NAUSEA AD VOMITING THIS MORNING. SHARP 10/10 PAIN. SKIN IS PINK/WARM/DRY; AAOX4 WITH EVEN AND STEADY GAIT; LUNGS CLEAR BL; HR EVEN AND REGULAR; PT DENIES ANY FEVER, CP, SOB, OR COUGH AT THIS TIME; PATIENT STATES PAIN OF 10/10 AT THIS TIME; PATIENT POSITIONED FOR COMFORT; HOB ELEVATED; BEDRAILS UP X2; BED DOWN. ER MD MADE AWARE OF PT STATUS. PMH: ASTHMA, DM2, HTN, KIDNEY STONES, RENAL DISEASE NKA
[2021-02-15 18:33] LABS: RBC,URINE 0-5 /HPF (0-5); TRICHOMONAS,URINE None Seen /HPF (None Seen); WBC,URINE NONE SEEN /HPF (0-5); YEAST,URINE None Seen /HPF (None Seen)
[2021-02-15] MEDS ORDERED: ONDANSETRON 4 MG ODT PO ONE (18:45)
[2021-02-15] MEDS ORDERED: MORPHINE SULFATE 4 MG/ML SYR IM ONE (18:45)
[2021-02-15] MEDS ORDERED: NAPR-1704 PO (19:02)
[2021-02-15] MEDS ORDERED: ACET-8386 PO (19:02)
[2021-02-15] MEDS ORDERED: TAMS0.4C96 PO (19:02)
--- NOTE | 2021-02-15 19:12 | NUR ---
REPORT RECEIVED FROM KING HARPER FOR CONTINUITY OF PT CARE.
--- NOTE | 2021-02-15 19:12 | NUR ---
Pt report given to CARISSA MALIK. Transfer of care at this time.
--- NOTE | 2021-02-15 19:44 | NUR ---
Dr. Prado examining patient.
[2021-02-15 19:57] VITALS: BP 126/79
--- NOTE | 2021-02-15 19:57 | NUR ---
Patient discharged with v/s stable. Written and verbal after care instructions given and explained. Patient alert, oriented and verbalized understanding of instructions. Ambulatory with steady gait. All questions addressed prior to discharge. ID band removed. Patient advised to follow up with PMD. Rx of NORCO, NAPROXEN, FLOMAX given. Patient educated on indication of medication including possible reaction and side effects. Opportunity to ask questions provided and answered.
== END 2021-02-15 19:57 | disposition home or self-care (01) ==
LOC: MED 16:06
DX: N23 Unspecified renal colic (principal); R11.2 Nausea with vomiting, unspecified; J45.909 Unspecified asthma, uncomplicated; E11.9 Type 2 diabetes mellitus without complications; I10 Essential (primary) hypertension; F12.90 Cannabis use, unspecified, uncomplicated; Z87.442 Personal history of urinary calculi; Z98.890 Other specified postprocedural states; Z79.899 Other long term (current) drug therapy; Z79.84 Long term (current) use of oral hypoglycemic drugs
CPT/HCPCS: 36415; 76830; 80053; 81001; 81025; 85025; 93976; 96372; 99284; J1885; J2270; Q0092; Q0162

== ENCOUNTER 2021-06-19 16:51 | Emergency (ER) | payer MEDICAID, SELFPAY ==
[~2021-06-19] VITALS: Ht 160 cm; Wt 94.3 kg
[~2021-06-19 16:51] MED LIST changes: +ACET-8386 PO; +NAPR-1704 PO; +ONDA-188 PO; -ONDA-24 PO; +TAMS0.4C96 PO
[2021-06-19 16:58] VITALS: BP 125/93
--- NOTE | 2021-06-19 17:08 | NUR ---
Patient ambulated to bed 02 with steady/even gait.
--- NOTE | 2021-06-19 17:15 | NUR ---
46 y/o F BIB self from home c/o chills, nausea, vomiting, diarrhea, fever, and chest pressure. Pt reports chest pressure across upper chest, 10/01, pressure/constant, non-radiating pain. Pt reports testing positive COVID in April, and most recently tested negative 06/07. Pt reports symptoms began suddenly yesterday. Denies SOB, cough, constipation, dysuria, urinary symptoms. Pt placed onto cardiac exercise specialist. Respirations even/unlabored. HR 115. Bed locked in lowest position, side rails x 1. PMH: OR (July 2020), HLD, DM2 Meds: glipizide, metformin, atorvastatin NKDA Sx: C-sections
[2021-06-19] MEDS ORDERED: NACL 0.9% 1,000 ML IV ONE (17:20)
[2021-06-19] MEDS ORDERED: ACETAMINOPHEN EXTRA STRENGTH 500 MG TAB PO ONE ×2 (17:20→20:35)
--- NOTE | 2021-06-19 17:20 | NUR ---
Dr. Esteves is evaluating pt at bedside
--- NOTE | 2021-06-19 17:36 | NUR ---
Blood sample and Covid joseph handed to CPT Jessi at ER bedside
--- NOTE | 2021-06-19 17:36 | NUR ---
RAD at bedside
[2021-06-19 17:45] LABS: BASOPHILS # (AUTO) 0.1 K/uL (0.00-0.22); BASOPHILS % (AUTO) 0.8 % (0.0-2.0); EOSINOPHILS # (AUTO) 0.1 K/uL (0-0.4); EOSINOPHILS % (AUTO) 0.6 % (0.0-4.0); HEMATOCRIT 42.5 % (36-48); LYMPHOCYTES # (AUTO) 2.6 K/uL (2.5-16.5); MEAN CORPUSCULAR HEMOGLOBIN 27 pg (27-31); MEAN CORPUSCULAR HGB CONC 33 g/dL (33-37); MEAN CORPUSCULAR VOLUME 82.7 fL (80-94); MONOCYTES % (AUTO) 7.8 % (1.7-9.3); NEUTROPHILS # (AUTO) 9.2 K/uL (1.8-7.7); NEUTROPHILS % (AUTO) 70.8 % (42.2-75.2); PLATELET COUNT (AUTO) 317 K/uL (140-450); RED BLOOD CELL COUNT(AUTO) 5.14 MIL/uL (4.20-5.40)
[2021-06-19 18:01] LABS: ALBUMIN 3.4 g/dL (3.4-5.0); ANION GAP 13.6 (8-16); CARBON DIOXIDE 24.4 mmol/L (21-32); CREATININE 0.9 mg/dL (0.6-1.3); TOTAL BILIRUBIN 0.3 mg/dL (0.0-1.0)
--- NOTE | 2021-06-19 18:08 | NUR ---
Pt ambulated to restroom for urine sample.
[2021-06-19 18:45] LABS: ALBUMIN 3.5 g/dL (3.4-5.0); BILIRUBIN,DIRECT 0.1 mg/dL (0.0-0.3); TOTAL BILIRUBIN 0.3 mg/dL (0.0-1.0)
--- NOTE | 2021-06-19 19:07 | NUR ---
Report and transfer of care endorsed to KING Francisco.
--- NOTE | 2021-06-19 19:37 | NUR ---
HANDOFF FROM KING COLMENARES. RECEIVED PT AAOX4. NO SOB. ON MONITOR WITH VSS. NO COMPLAINTS OF N/V. HEADACHE 08/31 AND IS TOLERABLE. WILL CONTINUE TO MONITOR.
[2021-06-19 19:46] LABS: APPEARANCE,URINE CLEAR (CLEAR); BILIRUBIN,URINE NEGATIVE (NEGATIVE); BLOOD, URINE TRACE-I (NEGATIVE); COLOR,URINE YELLOW (YELLOW); LEUKOCYTE ESTERASE ,URINE TRACE (NEGATIVE); NITRITE, URINE NEGATIVE (NEGATIVE); UGLUCOSE 3+ (NEGATIVE)
[2021-06-19 19:49] LABS: RBC,URINE 0-5 /HPF (0-5); WBC,URINE 0-5 /HPF (0-5)
--- NOTE | 2021-06-19 21:14 | NUR ---
PT REPORTS FEELING NAUSEOUS. DR. GUZMAN NOTIFIED. VERBAL ORDER FOR 4MG ZOFRAN IVP x1 DOSE. ORDER CARRIED OUT.
[2021-06-19] MEDS ORDERED: ONDANSETRON 4 MG/2 ML VIAL IVP ONE ×2 (21:15→21:20)
[2021-06-19] MEDS ORDERED: ONDANSETRON 4 MG/2 ML VIAL ONE (21:16)
--- NOTE | 2021-06-19 21:44 | NUR ---
PT TOLERATED PO CHALLENGE. NO NAUSEA OR VOMITTING.
[2021-06-19 22:22] VITALS: BP 113/64
--- NOTE | 2021-06-19 22:24 | NUR ---
Patient discharged with v/s stable. Written and verbal after care instructions given and explained. Patient verbalized understanding. Ambulatory with steady gait. All questions addressed prior to discharge. Advised to follow up with PMD.
== END 2021-06-19 22:24 | disposition home or self-care (01) ==
LOC: MED 16:51
DX: R50.9 Fever, unspecified (principal); R11.2 Nausea with vomiting, unspecified; Z20.822 Contact with and (suspected) exposure to COVID-19; E11.9 Type 2 diabetes mellitus without complications; J45.909 Unspecified asthma, uncomplicated; I10 Essential (primary) hypertension; Z87.448 Personal history of other diseases of urinary system; Z79.891 Long term (current) use of opiate analgesic; Z79.1 Long term (current) use of non-steroidal anti-inflammatories (NSAID); Z79.899 Other long term (current) drug therapy
CPT/HCPCS: 36415; 71045; 80053; 80076; 81001; 83690; 83880; 84484; 85025; 87426; 93005; 96361; 96374; 99285; J2405; Q0092; J7030

== ENCOUNTER 2022-08-23 18:57 | Emergency (ER) | payer MEDICAID ==
[~2022-08-23] VITALS: Ht 162.6 cm; Wt 101.2 kg
[~2022-08-23 18:57] MED LIST changes: -ACET-8386 PO; +ACET-8905 PO; +METF-1274 PO; -METF1000 PO
[2022-08-23 19:57] VITALS: BP 121/84
[2022-08-23] MEDS ORDERED: NACL 0.9% 1,000 ML IV ONE (21:00)
[2022-08-23] MEDS ORDERED: ONDANSETRON 4 MG/2 ML VIAL IVP ONE (21:00)
[2022-08-23 21:27] LABS: BASOPHILS # (AUTO) 0.1 K/uL (0.00-0.22); BASOPHILS % (AUTO) 0.7 % (0.0-2.0); EOSINOPHILS # (AUTO) 0.1 K/uL (0-0.4); HEMATOCRIT 44.5 % (36-48); HEMOGLOBIN 15.2 g/dL (12.0-16.0); LYMPHOCYTES # (AUTO) 2.6 K/uL (2.5-16.5); LYMPHOCYTES % (AUTO) 23.9 % (20.5-51.1); MEAN CORPUSCULAR HEMOGLOBIN 30 pg (27-31); MEAN CORPUSCULAR HGB CONC 34 g/dL (33-37); MEAN CORPUSCULAR VOLUME 87.1 fL (80-94); MONOCYTES # (AUTO) 0.9 K/uL (0.8-1.0); MONOCYTES % (AUTO) 8.6 % (1.7-9.3); NEUTROPHILS # (AUTO) 7.2 K/uL (1.8-7.7); NEUTROPHILS % (AUTO) 65.8 % (42.2-75.2); PLATELET COUNT (AUTO) 283 K/uL (140-450); RED CELL DISTRIBUTION WIDTH 13.5 % (11.6-13.7); WHITE BLOOD COUNT (AUTO) 10.9 K/uL (4.8-10.8)
[2022-08-23 21:45] LABS: ALBUMIN 3.4 g/dL (3.4-5.0); ANION GAP 11.1 (8-16); ASPARTATE AMINOTRANSFERASE 15 U/L (15-37); CARBON DIOXIDE 26.9 mmol/L (21-32); CHLORIDE 102 mmol/L (98-107); CREATININE 0.9 mg/dL (0.6-1.3); GFR ARICAN-AMERICAN 87 mL/min (>90); GLUCOSE 359 mg/dL (74-106); LIPASE 161 U/L (73-393); SODIUM SERUM 136 mmol/L (136-145); TOTAL BILIRUBIN 0.3 mg/dL (0.0-1.0); UREA NITROGEN, BLOOD 15 mg/dL (7-18)
[2022-08-23 22:03] LABS: ACETONE, SERUM NEGATIVE (NEGATIVE)
[2022-08-23] MEDS ORDERED: ONDANSETRON 4 MG/2 ML VIAL ONE (22:15)
--- NOTE | 2022-08-23 22:16 | NUR ---
Patient resting in bed, A/Ox4, chest rise and fall symmetrical, no c/o pain or s/s of distress, on monitor.
[2022-08-23] MEDS ORDERED: INSULIN REGULAR, HUMAN 100 UNIT/ML VIAL IV ONE (22:25)
[2022-08-23 22:32] LABS: APPEARANCE,URINE CLEAR (CLEAR); BILIRUBIN,URINE NEGATIVE (NEGATIVE); BLOOD, URINE NEGATIVE (NEGATIVE); COLOR,URINE YELLOW (YELLOW); LEUKOCYTE ESTERASE ,URINE NEGATIVE (NEGATIVE); NITRITE, URINE NEGATIVE (NEGATIVE); PH,URINE 5.5 (5.0-9.0); UGLUCOSE 3+ (NEGATIVE)
[2022-08-23] MEDS ORDERED: ONDA-188 SL (23:00)
--- NOTE | 2022-08-23 23:01 | NUR ---
Dr. Vivar speaking with patient.
[2022-08-23 23:40] VITALS: BP 119/74
== END 2022-08-23 23:42 | disposition home or self-care (01) ==
LOC: MED 18:57
DX: E11.65 Type 2 diabetes mellitus with hyperglycemia (principal); N20.0 Calculus of kidney; Z79.4 Long term (current) use of insulin; Z79.899 Other long term (current) drug therapy
CPT/HCPCS: 36415; 80053; 81003; 82009; 83690; 85025; 96361; 96374; 96375; 99285; J1815; J2405

== ENCOUNTER 2022-12-12 07:20 | Emergency (ER) | payer MEDICAID ==
[~2022-12-12] VITALS: Ht 172.7 cm; Wt 76.2 kg
[~2022-12-12 07:20] MED LIST changes: +ONDA-188 SL
[2022-12-12 07:52] VITALS: BP 131/83; PULSE 100; RESP 17; TEMP 97.4; O2SAT 99
[2022-12-12] MEDS ORDERED: ALUMINUM HYD/MAG/SIMETHICONE 30 ML UDC PO ONE (08:15)
[2022-12-12] MEDS ORDERED: ONDANSETRON 4 MG ODT PO ONE (08:15)
[2022-12-12] MEDS ORDERED: FAMOTIDINE 20 MG TAB PO ONE (08:15)
[2022-12-12 09:23] LABS: ALBUMIN 3.1 g/dL (3.4-5.0); ANION GAP 12.5 (8-16); CALCIUM 8.6 mg/dL (8.5-10.1); CARBON DIOXIDE 25.4 mmol/L (21-32); CREATININE 0.9 mg/dL (0.6-1.3); POTASSIUM 3.9 mmol/L (3.5-5.1); THYROID STIMULATING HORMONE 1.57 uIU/mL (0.34-3.74); TOTAL BILIRUBIN 0.5 mg/dL (0.0-1.0); TOTAL PROTEIN, SERUM 7.2 g/dL (6.4-8.2)
[2022-12-12] MEDS ORDERED: ALUMINUM HYD/MAG/SIMETHICONE 30 ML UDC ONE (09:29)
[2022-12-12] MEDS ORDERED: FAMOTIDINE 20 MG TAB ONE (09:29)
[2022-12-12] MEDS ORDERED: ONDANSETRON 4 MG ODT ONE (09:29)
[2022-12-12 09:35] LABS: BASOPHILS % (AUTO) 0.2 % (0.0-2.0); EOSINOPHILS # (AUTO) 0.1 K/uL (0-0.4); EOSINOPHILS % (AUTO) 0.4 % (0.0-4.0); HEMATOCRIT 42.3 % (36-48); HEMOGLOBIN 14.3 g/dL (12.0-16.0); LYMPHOCYTES # (AUTO) 1.5 K/uL (2.5-16.5); LYMPHOCYTES % (AUTO) 9.8 % (20.5-51.1); MEAN CORPUSCULAR HEMOGLOBIN 29 pg (27-31); MEAN CORPUSCULAR HGB CONC 34 g/dL (33-37); MEAN CORPUSCULAR VOLUME 85.4 fL (80-94); MONOCYTES % (AUTO) 6.7 % (1.7-9.3); NEUTROPHILS # (AUTO) 12.9 K/uL (1.8-7.7); NEUTROPHILS % (AUTO) 82.9 % (42.2-75.2); PLATELET COUNT (AUTO) 261 K/uL (140-450); RED BLOOD CELL COUNT(AUTO) 4.95 MIL/uL (4.20-5.40); RED CELL DISTRIBUTION WIDTH 13.7 % (11.6-13.7); WHITE BLOOD COUNT (AUTO) 15.6 K/uL (4.8-10.8)
[2022-12-12 10:53] VITALS: O2SAT 99
== END 2022-12-12 10:55 | disposition home or self-care (01) ==
LOC: MED 07:20
DX: E11.65 Type 2 diabetes mellitus with hyperglycemia (principal); B34.9 Viral infection, unspecified; J45.909 Unspecified asthma, uncomplicated; Z87.442 Personal history of urinary calculi; Z79.899 Other long term (current) drug therapy; Z79.84 Long term (current) use of oral hypoglycemic drugs
CPT/HCPCS: 36415; 80053; 83690; 84443; 85025; 93005; 99284; Q0162

== ENCOUNTER 2023-05-31 10:04 | Emergency (ER) | payer MEDICAID ==
[~2023-05-31] VITALS: Ht 162.6 cm; Wt 97.5 kg
[~2023-05-31 10:04] MED LIST changes: -GLIP5TAB13 PO; +GLIP5TAB22 PO
[2023-05-31 10:06] VITALS: BP 141/86; PULSE 100; RESP 17; TEMP 97.3; O2SAT 98
[2023-05-31] MEDS: NACL 0.9% 1,000 ML IV SCH (10:49)
[2023-05-31 10:51] LABS: BASOPHILS % (AUTO) 0.4 % (0.0-2.0); EOSINOPHILS # (AUTO) 0.1 K/uL (0-0.4); EOSINOPHILS % (AUTO) 0.8 % (0.0-4.0); HEMATOCRIT 47.2 % (36-48); HEMOGLOBIN 16.1 g/dL (12.0-16.0); LYMPHOCYTES # (AUTO) 2.3 K/uL (2.5-16.5); LYMPHOCYTES % (AUTO) 20.3 % (20.5-51.1); MEAN CORPUSCULAR HEMOGLOBIN 29 pg (27-31); MEAN CORPUSCULAR HGB CONC 34 g/dL (33-37); MEAN CORPUSCULAR VOLUME 85.7 fL (80-94); MONOCYTES # (AUTO) 0.9 K/uL (0.8-1.0); MONOCYTES % (AUTO) 8.2 % (1.7-9.3); NEUTROPHILS # (AUTO) 7.9 K/uL (1.8-7.7); NEUTROPHILS % (AUTO) 70.3 % (42.2-75.2); PLATELET COUNT (AUTO) 251 K/uL (140-450); RED CELL DISTRIBUTION WIDTH 14.1 % (11.6-13.7); WHITE BLOOD COUNT (AUTO) 11.1 K/uL (4.8-10.8)
[2023-05-31 10:59] LABS: BILIRUBIN,URINE NEGATIVE (NEGATIVE); BLOOD, URINE TRACE-I (NEGATIVE); LEUKOCYTE ESTERASE ,URINE TRACE (NEGATIVE); NITRITE, URINE POSITIVE (NEGATIVE); PROTEIN,URINE NEGATIVE (NEGATIVE); UGLUCOSE 3+ (NEGATIVE); UROBILINOGEN,URINE 0.2 EU/dL (0.2 - 1)
[2023-05-31 11:00] LABS: APPEARANCE,URINE SLIGHTLY HAZY (CLEAR); COLOR,URINE YELLOW (YELLOW)
[2023-05-31 11:01] LABS: ANION GAP 15.6 (8-16); CALCIUM 9.5 mg/dL (8.5-10.1); CARBON DIOXIDE 27.9 mmol/L (21-32); CREATININE 0.9 mg/dL (0.6-1.3); POTASSIUM 5.5 mmol/L (3.5-5.1)
[2023-05-31 11:27] LABS: BACTERIA,URINE 1+ /HPF (None Seen); RBC,URINE 0-5 /HPF (0-5); SQUAMOUS EPITHELIAL CELL,UR 0-3 (FEW) /LPF (0-3 (FEW))
[2023-05-31] MEDS ORDERED: NITR100C7 PO (11:41)
[2023-05-31] MEDS: NACL 0.9% 1,000 ML IV ONE (11:45)
[2023-05-31] MEDS ORDERED: INSULIN REGULAR, HUMAN 100 UNIT/ML VIAL SUBQ ONE (11:45)
[2023-05-31] MEDS: INSULIN REGULAR, HUMAN 100 UNIT/ML VIAL IVP ONE (12:06)
[2023-05-31] MEDS: KETOROLAC 30 MG/ML VIAL IVP ONE (14:17)
[2023-05-31 14:36] VITALS: BP 141/86; PULSE 100; RESP 17; TEMP 97.3; O2SAT 98
== END 2023-05-31 14:36 | disposition home or self-care (01) ==
LOC: MED 10:04
DX: E11.9 Type 2 diabetes mellitus without complications (principal); N39.0 Urinary tract infection, site not specified; G89.29 Other chronic pain; R07.9 Chest pain, unspecified; F41.9 Anxiety disorder, unspecified; J45.909 Unspecified asthma, uncomplicated; G47.30 Sleep apnea, unspecified; F32.9 Major depressive disorder, single episode, unspecified; F12.90 Cannabis use, unspecified, uncomplicated; Z98.890 Other specified postprocedural states; Z79.899 Other long term (current) drug therapy; Z79.1 Long term (current) use of non-steroidal anti-inflammatories (NSAID)
CPT/HCPCS: 36415; 80048; 81001; 81025; 82948; 84484; 85025; 87086; 93005; 96361; 96374; 96375; 99284; J1815; J1885; J7030

== ENCOUNTER 2023-06-21 12:09 | Emergency (ER) | payer MEDICAID ==
[~2023-06-21] VITALS: Ht 160 cm; Wt 97.5 kg
[~2023-06-21 12:09] MED LIST changes: +NITR100C7 PO
[2023-06-21 12:14] VITALS: BP 113/67; PULSE 111; RESP 16; TEMP 98.3; O2SAT 98
[2023-06-21 12:15] VITALS: O2SAT 98
[2023-06-21 13:47] LABS: APPEARANCE,URINE CLEAR (CLEAR); BILIRUBIN,URINE NEGATIVE (NEGATIVE); BLOOD, URINE 2+ (NEGATIVE); COLOR,URINE YELLOW (YELLOW); LEUKOCYTE ESTERASE ,URINE TRACE (NEGATIVE); NITRITE, URINE NEGATIVE (NEGATIVE); PROTEIN,URINE 2+ (NEGATIVE); UGLUCOSE NEGATIVE (NEGATIVE); UROBILINOGEN,URINE 0.2 EU/dL (0.2 - 1)
[2023-06-21 14:03] LABS: RBC,URINE 20-50 /HPF (0-5); WBC,URINE >25 (MANY) /HPF (0-5)
[2023-06-21 14:04] LABS: BACTERIA,URINE 1+ /HPF (None Seen); SQUAMOUS EPITHELIAL CELL,UR 0-3 (FEW) /LPF (0-3 (FEW))
[2023-06-21] MEDS ORDERED: cefTRIAXone 500 MG VIAL ONE (14:45)
[2023-06-21] MEDS ORDERED: LIDOCAINE MPF 1% 5 ML ONE (14:46)
[2023-06-21] MEDS: cefTRIAXone 500 MG in LIDOCAINE MPF 1% 1 ML IM ONE (14:49)
[2023-06-21] MEDS ORDERED: CEFP200T20 PO (16:35)
[2023-06-21] MEDS ORDERED: IBUP-2213 PO (16:35)
== END 2023-06-21 16:43 | disposition home or self-care (01) ==
LOC: MED 12:09
DX: N12 Tubulo-interstitial nephritis, not specified as acute or chronic (principal); N20.0 Calculus of kidney; J45.909 Unspecified asthma, uncomplicated; E11.9 Type 2 diabetes mellitus without complications; N28.9 Disorder of kidney and ureter, unspecified; I25.10 Atherosclerotic heart disease of native coronary artery without angina pectoris; Z79.899 Other long term (current) drug therapy; Z79.4 Long term (current) use of insulin
CPT/HCPCS: 74176; 81001; 81025; 87086; 96372; 99285; J0696; J2001

== ENCOUNTER 2023-09-15 07:25 | Inpatient (IN) | payer MEDICAID ==
[~2023-09-15] VITALS: Ht 162.6 cm; Wt 96.2 kg
[~2023-09-15 07:25] MED LIST changes: +CEFP200T20 PO; +IBUP-2213 PO
[2023-09-15 07:41] VITALS: BP 144/88; PULSE 107; RESP 18; TEMP 98.3; O2SAT 100
[2023-09-15 08:21] LABS: APPEARANCE,URINE CLEAR (CLEAR); BILIRUBIN,URINE NEGATIVE (NEGATIVE); BLOOD, URINE 1+ (NEGATIVE); COLOR,URINE YELLOW (YELLOW); LEUKOCYTE ESTERASE ,URINE NEGATIVE (NEGATIVE); NITRITE, URINE NEGATIVE (NEGATIVE); PROTEIN,URINE TRACE (NEGATIVE); UGLUCOSE 3+ (NEGATIVE); UROBILINOGEN,URINE 0.2 EU/dL (0.2 - 1)
[2023-09-15 08:36] LABS: BASOPHILS % (AUTO) 0.2 % (0.0-2.0); EOSINOPHILS # (AUTO) 0.1 K/uL (0-0.4); EOSINOPHILS % (AUTO) 0.8 % (0.0-4.0); HEMATOCRIT 42.1 % (36-48); HEMOGLOBIN 14.2 g/dL (12.0-16.0); LYMPHOCYTES # (AUTO) 2.1 K/uL (2.5-16.5); LYMPHOCYTES % (AUTO) 15.6 % (20.5-51.1); MEAN CORPUSCULAR HEMOGLOBIN 29 pg (27-31); MEAN CORPUSCULAR HGB CONC 34 g/dL (33-37); MEAN CORPUSCULAR VOLUME 85.6 fL (80-94); MONOCYTES # (AUTO) 0.9 K/uL (0.8-1.0); MONOCYTES % (AUTO) 6.8 % (1.7-9.3); NEUTROPHILS # (AUTO) 10.1 K/uL (1.8-7.7); NEUTROPHILS % (AUTO) 76.6 % (42.2-75.2); PLATELET COUNT (AUTO) 263 K/uL (140-450); RED BLOOD CELL COUNT(AUTO) 4.92 MIL/uL (4.20-5.40); RED CELL DISTRIBUTION WIDTH 13.8 % (11.6-13.7); WHITE BLOOD COUNT (AUTO) 13.2 K/uL (4.8-10.8)
[2023-09-15 08:49] LABS: AMPHETAMINE, URINE NEGATIVE ng/ml (NEG <=1000); BARBITURATE, URINE NEGATIVE ng/ml (NEG <=200); BENZODIAZEPINE, URINE NEGATIVE ng/mL (NEG <=200); CANNABINOID, URINE NEGATIVE ng/mL (NEG <=50); COCAINE, URINE NEGATIVE ng/mL (NEG <=300); OPIATE, URINE NEGATIVE ng/mL (NEG <=2000); PHENCYCLIDINE SCREEN,URINE NEGATIVE ng/mL (NEG <=25)
[2023-09-15 08:49] LABS: ANION GAP 14.6 (8-16); CALCIUM 9.2 mg/dL (8.5-10.1); CARBON DIOXIDE 24.4 mmol/L (21-32); CREATININE 0.8 mg/dL (0.6-1.3)
[2023-09-15 08:56] LABS: ALANINE AMINOTRANSFERASE 21 U/L (12-78); ALBUMIN 3.1 g/dL (3.4-5.0); ALKALINE PHOSPHATASE 109 U/L (50-136); ASPARTATE AMINOTRANSFERASE 14 U/L (15-37); BILIRUBIN,DIRECT 0.1 mg/dL (0.0-0.3); LIPASE 44 U/L (16-77); TOTAL BILIRUBIN 0.4 mg/dL (0.0-1.0); TOTAL PROTEIN, SERUM 7.3 g/dL (6.4-8.2)
[2023-09-15 09:02] LABS: BACTERIA,URINE FEW /HPF (None Seen); SQUAMOUS EPITHELIAL CELL,UR 0-3 (FEW) /LPF (0-3 (FEW)); WBC,URINE 0-5 /HPF (0-5)
[2023-09-15 09:07] LABS: INR 0.91 (0.8-1.2); PARTIAL THROMBOPLASTIN TIME 23.6 secs (22-35.6); PROTHROMBIN TIME 9.6 secs (10.8-13.4)
[2023-09-15] MEDS ORDERED: KETOROLAC 30 MG/ML VIAL ONE (10:00)
[2023-09-15] MEDS: ONDANSETRON 4 MG/2 ML VIAL IVP ONE (10:17)
[2023-09-15] MEDS: MORPHINE SULFATE 4 MG/ML SYR IVP ONE (11:00)
[2023-09-15] MEDS: KETOROLAC 30 MG/ML VIAL IVP ONE (11:02)
[2023-09-15] MEDS ORDERED: LOSA-269 PO (11:58)
[2023-09-15] MEDS ORDERED: ERGO-30 PO (11:58)
[2023-09-15] MEDS ORDERED: GABA-636 PO (11:58)
[2023-09-15] MEDS ORDERED: SEMA0.258 SQ (11:58)
[2023-09-15] MEDS ORDERED: EZET10TA50 PO (11:58)
[2023-09-15] MEDS ORDERED: DAPA5TAB PO (11:58)
[2023-09-15 12:29] LABS: LACTIC ACID 1.2 mmol/L (0.4-2.0)
[2023-09-15] MEDS ORDERED: ONDANSETRON 4 MG/2 ML VIAL IVP PRN (12:55)
[2023-09-15] MEDS ORDERED: DEXT 5% /NACL 0.9% 1,000 ML IV SCH (12:55)
[2023-09-15] MEDS ORDERED: DEXTROSE 50% 50 ML SYR IVP PRN (13:00)
[2023-09-15 14:09] VITALS: PULSE 105; RESP 22; O2SAT 98
[2023-09-15 16:00] VITALS: BP 129/74; PULSE 101; PULSE 102; RESP 19; TEMP 97.6; O2SAT 98
[2023-09-15] MEDS: MORPHINE SULFATE 2 MG/ML SYR IVP PRN (16:29)
[2023-09-15] MEDS: BLOOD GLUCOSE MONITORING 1 DEV DEV FS SCH (16:30)
[2023-09-15 20:00] VITALS: BP 132/80; PULSE 101; PULSE 91; RESP 16; RESP 19; TEMP 98.3; O2SAT 96; O2SAT 98
[2023-09-15] MEDS: PANTOPRAZOLE 40 MG INJ VIAL IVP SCH (22:24)
[2023-09-16] VITALS (8 sets, daily range): BP systolic 94–132; BP diastolic 64–75; PULSE 89–104; RESP 16–19; TEMP 97.1–97.6; O2SAT 94–99
[2023-09-16] MEDS: HYDROcodone/APAP 5/325 MG 1 TAB TAB PO PRN (00:28)
[2023-09-16 07:05] LABS: ANION GAP 11.8 (8-16); CALCIUM 9.1 mg/dL (8.5-10.1); CARBON DIOXIDE 29.2 mmol/L (21-32); CREATININE 0.6 mg/dL (0.6-1.3)
[2023-09-16 07:10] LABS: BASOPHILS % (AUTO) 0.2 % (0.0-2.0); EOSINOPHILS # (AUTO) 0.1 K/uL (0-0.4); EOSINOPHILS % (AUTO) 0.8 % (0.0-4.0); HEMATOCRIT 41.5 % (36-48); HEMOGLOBIN 13.9 g/dL (12.0-16.0); LYMPHOCYTES # (AUTO) 2.5 K/uL (2.5-16.5); LYMPHOCYTES % (AUTO) 23.4 % (20.5-51.1); MEAN CORPUSCULAR HEMOGLOBIN 29 pg (27-31); MEAN CORPUSCULAR HGB CONC 33 g/dL (33-37); MEAN CORPUSCULAR VOLUME 86.7 fL (80-94); MONOCYTES % (AUTO) 9.1 % (1.7-9.3); NEUTROPHILS # (AUTO) 7.3 K/uL (1.8-7.7); NEUTROPHILS % (AUTO) 66.5 % (42.2-75.2); PLATELET COUNT (AUTO) 269 K/uL (140-450); RED BLOOD CELL COUNT(AUTO) 4.79 MIL/uL (4.20-5.40); RED CELL DISTRIBUTION WIDTH 13.8 % (11.6-13.7); WHITE BLOOD COUNT (AUTO) 10.9 K/uL (4.8-10.8)
[2023-09-16 07:16] LABS: ALBUMIN 2.9 g/dL (3.4-5.0); BILIRUBIN,DIRECT 0.1 mg/dL (0.0-0.3); TOTAL BILIRUBIN 0.4 mg/dL (0.0-1.0)
[2023-09-16 10:50] LABS: LIPASE 51 U/L (16-77); TRIGLYCERIDES 113 mg/dL (30-150)
[2023-09-16] MEDS: ACETAMINOPHEN 325 MG TAB PO PRN (12:06)
[2023-09-16] MEDS: METOCLOPRAMIDE 10 MG/2 ML INJ VIAL IVP SCH (12:17)
[2023-09-16] MEDS: INSULIN LISPRO SLIDING SCALE 100 UNITS/ML VIAL SUBQ PRN (12:24)
[2023-09-16] MEDS ORDERED: PANTOPRAZOLE 40 MG INJ VIAL IVP SCH (21:00)
[2023-09-16] MEDS: AMITRIPTYLINE 25 MG TAB PO SCH (22:15)
[2023-09-16] MEDS: SENNA 8.6 MG TAB PO SCH (22:15)
[2023-09-17] VITALS: BP 131/80; PULSE 104; RESP 18; TEMP 98.3; O2SAT 98
[2023-09-17 08:00] VITALS: BP 110/76; PULSE 102; PULSE 104; RESP 18; TEMP 98.6; O2SAT 98
[2023-09-17] MEDS: diphenhydrAMINE 50 MG/ML VIAL ONE (09:47)
[2023-09-17] MEDS: fentaNYL citrate 0.05 MG/ML VIAL ONE (09:47)
[2023-09-17] MEDS: MIDAZOLAM 5 MG/5 ML VIAL ONE (09:48)
[2023-09-17] MEDS: MIDAZOLAM 5 MG/5 ML VIAL IV ONE (11:58)
[2023-09-17] MEDS: fentaNYL citrate 0.05 MG/ML VIAL IVP ONE (11:59)
[2023-09-17] MEDS: SENNA 8.6 MG TAB PO SCH (12:15)
[2023-09-17 12:37] VITALS: BP 114/76; PULSE 104; RESP 18; TEMP 98; O2SAT 99
[2023-09-17] MEDS: MAGNESIUM HYDROXIDE 2400 MG/30 ML UDC PO ONE (14:04)
[2023-09-17] MEDS: MAGNESIUM HYDROXIDE 2400 MG/30 ML UDC ONE (14:04)
[2023-09-17 20:00] VITALS: PULSE 100; RESP 18; O2SAT 99
[2023-09-17 22:00] VITALS: BP 110/75; PULSE 100; RESP 18; TEMP 98.2; O2SAT 96
[2023-09-17 23:45] VITALS: O2SAT 99
[2023-09-18 06:47] LABS: BASOPHILS # (AUTO) 0.1 K/uL (0.00-0.22); BASOPHILS % (AUTO) 0.4 % (0.0-2.0); EOSINOPHILS # (AUTO) 0.1 K/uL (0-0.4); EOSINOPHILS % (AUTO) 0.9 % (0.0-4.0); HEMATOCRIT 40.2 % (36-48); HEMOGLOBIN 13.5 g/dL (12.0-16.0); LYMPHOCYTES # (AUTO) 2.3 K/uL (2.5-16.5); LYMPHOCYTES % (AUTO) 19.9 % (20.5-51.1); MEAN CORPUSCULAR HEMOGLOBIN 29 pg (27-31); MEAN CORPUSCULAR HGB CONC 34 g/dL (33-37); MEAN CORPUSCULAR VOLUME 86.4 fL (80-94); MONOCYTES # (AUTO) 1.1 K/uL (0.8-1.0); MONOCYTES % (AUTO) 9.6 % (1.7-9.3); NEUTROPHILS # (AUTO) 8.1 K/uL (1.8-7.7); NEUTROPHILS % (AUTO) 69.2 % (42.2-75.2); PLATELET COUNT (AUTO) 297 K/uL (140-450); RED BLOOD CELL COUNT(AUTO) 4.65 MIL/uL (4.20-5.40); RED CELL DISTRIBUTION WIDTH 13.6 % (11.6-13.7); WHITE BLOOD COUNT (AUTO) 11.7 K/uL (4.8-10.8)
[2023-09-18 06:48] LABS: ANION GAP 10.1 (8-16); CALCIUM 9.1 mg/dL (8.5-10.1); CARBON DIOXIDE 28.8 mmol/L (21-32); CREATININE 0.7 mg/dL (0.6-1.3); POTASSIUM 3.9 mmol/L (3.5-5.1)
[2023-09-18 07:46] VITALS: PULSE 98; RESP 20; O2SAT 100
[2023-09-18 08:00] VITALS: BP 105/66; PULSE 98; RESP 18; TEMP 97.2; O2SAT 95
[2023-09-18] MEDS ORDERED: SODIUM PHOSPHATE 118 ML ENEM RC SCH (09:40)
[2023-09-18] MEDS: SUPREP BOWEL PREP KIT 354 ML SOLN.RECON PO SCH (12:23)
[2023-09-18] MEDS: LACTULOSE 20 GM/30 ML UDC PO SCH (13:03)
[2023-09-18] MEDS: SENNA 8.6 MG TAB PO SCH (13:03)
[2023-09-18] MEDS: POLYETHYLENE GLYCOL 17 GM/PKT PO SCH (13:03)
[2023-09-18 16:00] VITALS: BP 118/78; PULSE 102; RESP 18; TEMP 97.8; O2SAT 100
[2023-09-18] MEDS: LUBIPROSTONE 24 MCG CAPSULE PO SCH (17:00)
[2023-09-18 20:00] VITALS: PULSE 108; RESP 18; O2SAT 98
[2023-09-18 20:45] VITALS: O2SAT 98
[2023-09-18] MEDS: AMITRIPTYLINE 25 MG TAB PO SCH (21:00)
[2023-09-18 22:38] VITALS: O2SAT 98
[2023-09-19] VITALS (7 sets, daily range): BP systolic 103–118; BP diastolic 66–84; PULSE 94–112; RESP 18–22; TEMP 97.2–98; O2SAT 95–99
[2023-09-19] MEDS: fentaNYL citrate 0.05 MG/ML VIAL ONE (14:11)
[2023-09-19] MEDS: MIDAZOLAM 5 MG/5 ML VIAL ONE (14:11)
[2023-09-19] MEDS: diphenhydrAMINE 50 MG/ML VIAL ONE (14:11)
[2023-09-19] MEDS: fentaNYL citrate 0.05 MG/ML VIAL IVP ONE (14:22)
[2023-09-19] MEDS: MIDAZOLAM 2 MG/2 ML VIAL IVP ONE (14:23)
[2023-09-19] MEDS: LACTULOSE 20 GM/30 ML UDC PO SCH (15:11)
[2023-09-19] MEDS: GABAPENTIN 100 MG CAP PO SCH (16:57)
[2023-09-19] MEDS ORDERED: IBUPROFEN 600 MG TAB PO PRN (19:40)
[2023-09-19] MEDS ORDERED: ZOLPIDEM 5 MG TAB PO PRN (19:40)
[2023-09-19] MEDS: KETOROLAC 30 MG/ML VIAL IVP PRN (20:06)
[2023-09-20] VITALS (7 sets, daily range): BP systolic 102–116; BP diastolic 67; PULSE 62–112; RESP 18–22; TEMP 97.8–98.3; O2SAT 95–96
[2023-09-20] MEDS: ALBUTEROL 0.083% 2.5 MG/3 ML NEBU INH PRN (13:46)
== END 2023-09-20 17:30 | disposition home or self-care (01) ==
LOC: MED 07:25 → MTU 12:55
PROVIDERS: ADMIT Student in an Organized Health Care Education/Training Program; ATTEND Student in an Organized Health Care Education/Training Program
PROC: 0DB68ZX Excision of Stomach, Via Natural or Artificial Opening Endoscopic, Diagnostic (ICD-10-PCS; principal; 2023-09-17 11:30)
PROC: 0DJD8ZZ Inspection of Lower Intestinal Tract, Via Natural or Artificial Opening Endoscopic (ICD-10-PCS; 2023-09-19)
DX: K80.20 Calculus of gallbladder without cholecystitis without obstruction (principal); E43 Unspecified severe protein-calorie malnutrition; E11.9 Type 2 diabetes mellitus without complications; K29.70 Gastritis, unspecified, without bleeding; K57.90 Diverticulosis of intestine, part unspecified, without perforation or abscess without bleeding; K29.80 Duodenitis without bleeding; E66.9 Obesity, unspecified; J40 Bronchitis, not specified as acute or chronic; F41.9 Anxiety disorder, unspecified; E78.5 Hyperlipidemia, unspecified; Z79.899 Other long term (current) drug therapy; F32.A Depression, unspecified; Z68.36 Body mass index [BMI] 36.0-36.9, adult
CPT/HCPCS: 36415; 71045; 71275; 72125; 72128; 76705; 78445; 80048; 80076; 80305; 81001; 82948; 83036; 83605; 83690; 83880; 84478; 84484; 85025; 85379; 85610; 85730; 86140; 86677; 87040; 87081; 93005; 93971; 94640; 96365; 96375; 99285; A9510; C9113; J0694; J1200; J1815; J1885; J2250; J2270; J2405; J2765; J3010; J7030; J7613; Q0092; Q9967

== ENCOUNTER 2023-11-09 05:40 | Emergency (ER) | payer MEDICAID ==
[~2023-11-09] VITALS: Ht 162.6 cm; Wt 95.3 kg
[~2023-11-09 05:40] MED LIST changes: -ACET-10509 PO; -ACET-8905 PO; -CEFP200T20 PO; +DAPA5TAB PO; +ERGO-30 PO; -ESCI10TA PO; +EZET10TA50 PO; +GABA-636 PO; -GLIP5TAB22 PO; +LOSA-269 PO; -NAPR-1704 PO; -NITR100C7 PO; -OMEP-278 PO; -ONDA-188 PO; -ONDA-188 SL; +SEMA0.258 SQ; -TAMS0.4C96 PO
[2023-11-09 05:44] VITALS: BP 114/78; PULSE 118; RESP 16; TEMP 97.4; O2SAT 100
[2023-11-09] MEDS: NACL 0.9% 1,000 ML IV ONE (06:46)
[2023-11-09] MEDS: ONDANSETRON 4 MG/2 ML VIAL IVP ONE (06:46)
[2023-11-09 06:52] LABS: BASOPHILS # (AUTO) 0.1 K/uL (0.00-0.22); BASOPHILS % (AUTO) 0.7 % (0.0-2.0); EOSINOPHILS # (AUTO) 0.1 K/uL (0-0.4); EOSINOPHILS % (AUTO) 0.4 % (0.0-4.0); HEMATOCRIT 42.6 % (36-48); HEMOGLOBIN 14.4 g/dL (12.0-16.0); LYMPHOCYTES # (AUTO) 2.2 K/uL (2.5-16.5); LYMPHOCYTES % (AUTO) 15.9 % (20.5-51.1); MEAN CORPUSCULAR HEMOGLOBIN 29 pg (27-31); MEAN CORPUSCULAR HGB CONC 34 g/dL (33-37); MEAN CORPUSCULAR VOLUME 85.1 fL (80-94); MONOCYTES # (AUTO) 1.3 K/uL (0.8-1.0); MONOCYTES % (AUTO) 9.3 % (1.7-9.3); NEUTROPHILS # (AUTO) 9.9 K/uL (1.8-7.7); NEUTROPHILS % (AUTO) 73.7 % (42.2-75.2); PLATELET COUNT (AUTO) 275 K/uL (140-450); RED BLOOD CELL COUNT(AUTO) 5.01 MIL/uL (4.20-5.40); RED CELL DISTRIBUTION WIDTH 14.1 % (11.6-13.7); WHITE BLOOD COUNT (AUTO) 13.5 K/uL (4.8-10.8)
[2023-11-09 07:07] LABS: ANION GAP 12.3 (8-16); CALCIUM 9.4 mg/dL (8.5-10.1); CARBON DIOXIDE 25.7 mmol/L (21-32); CREATININE 0.7 mg/dL (0.6-1.3)
[2023-11-09 07:13] LABS: TOTAL BILIRUBIN 0.6 mg/dL (0.0-1.0); TOTAL PROTEIN, SERUM 7.6 g/dL (6.4-8.2)
[2023-11-09 07:37] LABS: FLU A ANTIGEN negative (NEGATIVE); FLU B ANTIGEN negative (NEGATIVE)
[2023-11-09 08:07] LABS: APPEARANCE,URINE CLEAR (CLEAR); BILIRUBIN,URINE NEGATIVE (NEGATIVE); BLOOD, URINE TRACE-L (NEGATIVE); COLOR,URINE YELLOW (YELLOW); LEUKOCYTE ESTERASE ,URINE NEGATIVE (NEGATIVE); NITRITE, URINE NEGATIVE (NEGATIVE); PROTEIN,URINE TRACE (NEGATIVE); UGLUCOSE NEGATIVE (NEGATIVE); UROBILINOGEN,URINE 0.2 EU/dL (0.2 - 1)
[2023-11-09] MEDS ORDERED: ONDA-188 SL (08:37)
[2023-11-09 08:46] VITALS: BP 109/67; PULSE 95; RESP 16; TEMP 97.8; O2SAT 96
== END 2023-11-09 08:45 | disposition home or self-care (01) ==
LOC: MED 05:40
DX: R11.10 Vomiting, unspecified (principal); R51.9 Headache, unspecified; M79.18 Myalgia, other site; Z20.822 Contact with and (suspected) exposure to COVID-19; J45.909 Unspecified asthma, uncomplicated; E11.9 Type 2 diabetes mellitus without complications; Z87.448 Personal history of other diseases of urinary system; Z79.899 Other long term (current) drug therapy
CPT/HCPCS: 36415; 80048; 80076; 81003; 81025; 83690; 85025; 87426; 87804; 96361; 96374; 99283; J2405; J7030